=== PATIENT | male | born 1985 | race Caucasian/White ===

== ENCOUNTER 2017-12-29 20:19 | Emergency (ER) | payer SELFPAY ==
[2017-12-29] MEDS ORDERED: ASPIRIN 81 MG CHEWABLE TABLET ONE (22:54)
[2017-12-29] MEDS ORDERED: cloNIDine HCl 0.1 MG TAB ONE (22:54)
[2017-12-29 23:13] LABS: Absolute Lymphocytes (CBC) 1.8 K/uL (0.7-4.9); Absolute Monocytes 0.5 K/uL (0.1-1.3); Absolute Neutrophil 6.6 K/uL (1.8-8.0); Basophils % 0.4 % (0-1.3); Eosinophils % 1.3 % (0-4.4); Hematocrit 45.6 % (39.6-49.0); Lymphocytes % 20.2 % (15.3-44.8); MCH 30.7 pg (27.0-35.0); MCV 89.2 fL (80-100); MPV 9.3 fL (7.6-11.3); Monocytes % 5.9 % (3.3-12.3); RBC Red Blood Cell Count 5.11 M/uL (4.33-5.43)
[2017-12-29 23:17] LABS: Protime INR 1.01
[2017-12-29 23:29] LABS: Urine Blood NEGATIVE (NEG); Urine Glucose NEGATIVE (NEG); Urine Protein NEGATIVE (NEG)
[2017-12-29 23:32] LABS: ALT/SGPT 22 U/L (12-78); AST/SGOT 15 U/L (15-37); Albumin 3.6 g/dL (3.4-5.0); Alkaline Phosphatase 71 U/L (45-117); BUN Blood Urea Nitrogen 10 mg/dL (7-18); Bicarbonate 28 mmol/L (21-32); Bilirubin Direct 0.1 mg/dL (0-0.2); Bilirubin Total 0.5 mg/dL (0.2-1.0); CKMB Creatine Kinase MB < 1.0 ng/mL (0.3-3.6); Creatine Phosphokinase 102 U/L (39-308); Glucose Level 87 mg/dL (74-106); Magnesium 2.1 mg/dL (1.8-2.4); NT PRO-BNP 81 pg/mL (<125); Potassium 4.2 mmol/L (3.5-5.1); Protein, Total 7.6 g/dL (6.4-8.2); Sodium Level 138 mmol/L (136-145)
--- NOTE | 2017-12-30 00:47 | ER ---
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 Transition of care: patient was not received from another setting of care. Onset of symptoms was December 29, 2017. Risk Assessment: Do you want to hurt yourself or someone else? Patient reports no desire to harm self or others. Initial Sepsis Screen: Does the patient meet any 2 criteria? No. Patient's initial sepsis screen is negative. Does the patient have a suspected source of infection? No. Patient's initial sepsis screen is negative. Care prior to arrival: None. 20:26 Method Of Arrival: Ambulatory aj 20:26 Acuity: YUVAL 3 aj Triage Assessment: 20:29 General: Appears in no apparent distress. comfortable, Behavior is calm, cooperative, aj appropriate for age. Pain: Denies pain. Neuro: Level of Consciousness is awake, alert, obeys commands, Oriented to person, place, time, situation, Appropriate for age. Cardiovascular: Reports chest pain, nausea, Capillary refill < 3 seconds in bilateral fingers Patient's skin is warm and dry. Respiratory: Airway is patent Respiratory effort is even, unlabored, Respiratory pattern is regular, symmetrical. Derm: Skin is intact, is healthy with good turgor, Skin is pink, warm \\T\\ dry. normal. Historical: - Allergies: 20:29 PENICILLINS; aj - Home Meds: 20:29 None [Active]; aj - PMHx: 20:29 Hypertension; aj - PSHx: 20:29 Hernia repair; aj - Immunization history:: Adult Immunizations up to date. - Social history:: Smoking status: Patient/guardian denies using tobacco. - Ebola Screening: : Patient negative for fever greater than or equal to 101.5 degrees Fahrenheit, and additional compatible Ebola Virus Disease symptoms Patient denies exposure to infectious person Patient denies travel to an Ebola-affected area in the 21 days before illness onset No symptoms or risks identified at this time. Screenin:30 Abuse screen: Denies threats or abuse. Denies injuries from another. Nutritional aa1 screening: No deficits noted. Tuberculosis screening: No symptoms or risk factors identified. Fall Risk None identified. Assessment: 21:30 General: Appears in no apparent distress. comfortable, Behavior is calm, cooperative, aa1 appropriate for age. Pain: Denies pain. Neuro: Level of Consciousness is awake, alert, obeys commands, Oriented to person, place, time, situation, Moves all extremities. Full function Gait is steady, Speech is normal. Cardiovascular: Reports episode yesterday where he felt a "pumping" sensation in his chest Denies chest pain, diaphoresis, palpitations, Heart tones S1 S2 present Capillary refill < 3 seconds Clubbing of nail beds is absent JVD is absent Patient's skin is warm and dry. Rhythm is regular. Respiratory: Airway is patent Respiratory effort is even, unlabored, Respiratory pattern is regular, symmetrical. GI: No signs and/or symptoms were reported involving the gastrointestinal system. : No signs and/or symptoms were reported regarding the genitourinary system. EENT: No signs and/or symptoms were reported regarding the EENT system. Derm: Skin is intact, is healthy with good turgor, Skin is pink, warm \\T\\ dry. Musculoskeletal: Circulation, motion, and sensation intact. Capillary refill < 3 seconds. 23:50 Reassessment: Patient appears in no apparent distress at this time. Patient and/or aa1 family updated on plan of care and expected duration. Pain level reassessed. Patient is alert, oriented x 3, equal unlabored respirations, skin warm/dry/pink. Awaiting lab results. 12/30 00:39 Reassessment: Patient appears in no apparent distress at this time. Patient is alert, aa1 oriented x 3, equal unlabored respirations, skin warm/dry/pink. Pt reports he does not wish to stay for repeat cardiac enzymes which are to be drawn at 0130 and would like to sign out AMA. Pt \\T\\ spouse verbalize understanding of signing out AMA Patient denies pain at this time. Patient states feeling better. Vital Signs: 12/29 20:29 BP 167 / 112; Pulse 77; Resp 18; Temp 97.9; Pulse Ox 98% on R/A; Weight 145.15 kg; aj Height 5 ft. 8 in. (172.72 cm); 22:32 BP 149 / 104; Pulse 79; Resp 14; Pulse Ox 96% ; kk5 23:30 BP 138 / 80; Pulse 76; Resp 16; Pulse Ox 99% on R/A; Pain 0/10; aa1 12/30 00:30 BP 145 / 88; Pulse 71; Resp 16; Pulse Ox 99% on R/A; Pain 0/10; aa1 12/29 20:29 Body Mass Index 48.66 (145.15 kg, 172.72 cm) aj ED Course: 12/29 20:21 Patient arrived in ED. al2 20:21 Gaudencio Avina MD is Private Physician. al2 20:28 Triage completed. aj 20:29 Arm band placed on left wrist. Patient placed in waiting room. aj 20:50 EKG done, by ED staff. jp3 21:30 Patient has correct armband on for positive identification. Bed in low position. Call aa1 light in reach. thread trimmer on. Pulse ox on. NIBP on. 21:30 Patient maintains SpO2 saturation greater than 95% on room air. aa1 21:56 Elayne Dye FNP-C is PHCP. snw 21:56 Jorge Ness MD is Attending Physician. snw 22:23 Mirta Dumont RN is Primary Nurse. aa1 22:42 X-ray completed. Portable x-ray completed in exam room. Patient tolerated procedure ag1 well. 22:42 XRAY Chest (1 view) In Process Unspecified. EDMS 22:50 Inserted saline lock: 20 gauge in left antecubital area, using aseptic technique. Blood aa1 collected. 23:16 Urine collected: clean catch specimen, mateo colored. aa1 12/30 00:41 No provider procedures requiring assistance completed. IV discontinued, intact, aa1 bleeding controlled, No redness/swelling at site. Pressure dressing applied. 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 Demonstrated understanding of instructions. 00:46 Patient left the ED. aa1 Signatures: Dispatcher [employer] EDMS Mirta Dumont RN RN baldev1 Roseanne Granda RN RN Elayne Cheng, AUDIT SENIOR ASSOCIATE-C AUDIT SENIOR ASSOCIATE-Csnw Elvia Kay ag1 Rosemarie Diaz al2 Dallas Huitron jp3 Lora Colmenares kk5 Corrections: (The following items were deleted from the chart) 12/29 20:31 20:29 Arm band placed on left wrist. Patient placed in an exam room, on a stretcher, kassandra cannon
--- NOTE | 2017-12-30 00:47 | EDPHYS ---
Physician Documentation [facility] Name: Cheko Moran Age: 32 yrs Sex: Male : 1985 Arrival Date: 12/29/2017 Time: 20:21 Bed 13 Private MD: Gaudencio Avina T ED Physician Jorge Ness HPI: 12/29 22:38 This 32 yrs old Male presents to ER via Ambulatory with complaints of Chest snw Pain. 22:38 The patient or guardian reports chest pain that is located primarily in the anterior snw chest wall, left. The pain does not radiate. Associated signs and symptoms: Pertinent positives: nausea, palpitations, shortness of breath, tingling in left arm. The chest pain is described as squeezing. Duration: The patient or guardian reports a single episode, that is now resolved. Severity of pain: At its worst the pain was moderate severe. The patient has experienced a previous episode, yesterday. The patient has not recently seen a physician, the patient's primary care provider is Dr. Avina. Placed on HTN med, pt states everything got worse. Changed med, "same thing". Aunt 2 weeks ago of maker at 47. Pt states + early heart disease and family hx of obesity. Historical: - Allergies: 20:29 PENICILLINS; aj - Home Meds: 20:29 None [Active]; aj - PMHx: 20:29 Hypertension; aj - PSHx: 20:29 Hernia repair; aj - Immunization history:: Adult Immunizations up to date. - Social history:: Smoking status: Patient/guardian denies using tobacco. - Ebola Screening: : Patient negative for fever greater than or equal to 101.5 degrees Fahrenheit, and additional compatible Ebola Virus Disease symptoms Patient denies exposure to infectious person Patient denies travel to an Ebola-affected area in the 21 days before illness onset No symptoms or risks identified at this time. ROS: 22:36 Constitutional: Negative for fever, chills, and weight loss, Eyes: Negative for injury, snw pain, redness, and discharge, ENT: Negative for injury, pain, and discharge, Neck: Negative for injury, pain, and swelling. 22:36 Back: Negative for injury and pain, : Negative for injury, bleeding, discharge, and swelling, MS/Extremity: Negative for injury and deformity. 22:36 Neuro: Negative for headache, weakness, numbness, tingling, and seizure, Psych: Negative for depression, anxiety, suicide ideation, homicidal ideation, and hallucinations. 22:36 Cardiovascular: Positive for chest pain, orthopnea, palpitations. 22:36 Respiratory: Positive for shortness of breath. 22:36 Abdomen/GI: Positive for nausea. 22:36 Skin: Positive for diaphoresis. Exam: 22:36 Head/Face: Normocephalic, atraumatic. Eyes: Pupils equal round and reactive to light, snw extra-ocular motions intact. Lids and lashes normal. Conjunctiva and sclera are non-icteric and not injected. Cornea within normal limits. Periorbital areas with no swelling, redness, or edema. ENT: Nares patent. No nasal discharge, no septal abnormalities noted. Tympanic membranes are normal and external auditory canals are clear. Oropharynx with no redness, swelling, or masses, exudates, or evidence of obstruction, uvula midline. Mucous membranes moist. Neck: Trachea midline, no thyromegaly or masses palpated, and no cervical lymphadenopathy. Supple, full range of motion without nuchal rigidity, or vertebral point tenderness. No Meningismus. Chest/axilla: Normal chest wall appearance and motion. Nontender with no deformity. No lesions are appreciated. Cardiovascular: Regular rate and rhythm with a normal S1 and S2. No gallops, murmurs, or rubs. Normal PMI, no JVD. No pulse deficits. Respiratory: Lungs have equal breath sounds bilaterally, clear to auscultation and percussion. No rales, rhonchi or wheezes noted. No increased work of breathing, no retractions or nasal flaring. Abdomen/GI: Soft, non-tender, with normal bowel sounds. No distension or tympany. No guarding or rebound. No evidence of tenderness throughout. Back: No spinal tenderness. No costovertebral tenderness. Full range of motion. Skin: Warm, dry with normal turgor. Normal color with no rashes, no lesions, and no evidence of cellulitis. MS/ Extremity: Pulses equal, no cyanosis. Neurovascular intact. Full, normal range of motion. Neuro: Awake and alert, GCS 15, oriented to person, place, time, and situation. Cranial nerves II-XII grossly intact. Motor strength 5/5 in all extremities. Sensory grossly intact. Cerebellar exam normal. Normal gait. Psych: Awake, alert, with orientation to person, place and time. Behavior, mood, and affect are within normal limits. 22:36 Constitutional: The patient appears alert, awake, anxious, obese. Vital Signs: 20:29 BP 167 / 112; Pulse 77; Resp 18; Temp 97.9; Pulse Ox 98% on R/A; Weight 145.15 kg; aj Height 5 ft. 8 in. (172.72 cm); 22:32 BP 149 / 104; Pulse 79; Resp 14; Pulse Ox 96% ; kk5 23:30 BP 138 / 80; Pulse 76; Resp 16; Pulse Ox 99% on R/A; Pain 0/10; aa1 12/30 00:30 BP 145 / 88; Pulse 71; Resp 16; Pulse Ox 99% on R/A; Pain 0/10; aa1 12/29 20:29 Body Mass Index 48.66 (145.15 kg, 172.72 cm) aj MDM: 12/29 22:00 Patient medically screened. [facility] 12/30 01:10 LINDY Risk Score: 1 - Recent [<24hrs] Severe Angina. Data reviewed: vital signs, nurses snw notes, lab test result(s), EKG, radiologic studies. Awaiting: rapid rule time to repeat trop and EKG. Refusal of service: The patient/guardian displays adequate decision making capability and despite a detailed discussion of alternatives, benefits, risks, and consequences refuses: all lab tests, awaiting discharge, rapid rule chest pain protocol. Special discussion: Based on the history and exam findings, there is no indication for further emergent testing or inpatient evaluation. I discussed with the patient/guardian the need to see the operations support specialist for further evaluation of the symptoms. I discussed with the patient/guardian the need to see the primary care provider for further evaluation of the symptoms. 12/29 22:36 Order name: Basic Metabolic Panel; Complete Time: 23:34 snw 12/29 22:36 Order name: CBC with Diff; Complete Time: 23:16 snw 12/29 22:36 Order name: Ckmb; Complete Time: 23:34 snw 12/29 22:36 Order name: CPK; Complete Time: 23:34 snw 12/29 22:36 Order name: LFT's; Complete Time: 23:34 snw 12/29 22:36 Order name: Magnesium; Complete Time: 23:34 snw 12/29 22:36 Order name: NT PRO-BNP; Complete Time: 23:34 snw 12/29 22:36 Order name: PT-INR; Complete Time: 23:18 snw 12/29 22:36 Order name: Ptt, Activated; Complete Time: 23:18 snw 12/29 22:36 Order name: Troponin (emerg Dept Use Only); Complete Time: 23:29 snw 12/29 22:36 Order name: XRAY Chest (1 view) snw 12/29 23:18 Order name: Urine Dipstick--Ancillary (enter results); Complete Time: 23:34 ms 12/29 22:20 Order name: EKG; Complete Time: 22:22 snw 12/29 22:20 Order name: EKG - Nurse/Tech; Complete Time: 22:24 snw 12/29 22:36 Order name: Cardiac monitoring; Complete Time: 22:46 snw 12/29 22:36 Order name: IV Saline Lock; Complete Time: 23:09 snw 12/29 22:36 Order name: Labs collected and sent; Complete Time: 23:09 snw 12/29 22:36 Order name: O2 Per Protocol; Complete Time: 22:46 snw 12/29 22:36 Order name: O2 Sat Monitoring; Complete Time: 22:46 snw 12/29 22:36 Order name: Urine Dipstick-Ancillary (obtain specimen); Complete Time: 23:50 snw Administered Medications: 12/29 23:00 Drug: cloNIDine 0.1 mg Route: PO; aa1 23:50 Follow up: Response: No adverse reaction; Blood pressure is lowered aa1 23:15 Not Given (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 Disposition: 12/30/17 00:46 Patient has left against medical advice. - Patients states they are going to Home. - Condition is Stable. Signatures: Dispatcher [facility] Mirta Montes De Oca RN RN aa1 Granda, JI Cronin RN, Corey, MD MD cha Therrien, Shelly, LAMP SHADE MAKER-C LAMP SHADE MAKER-Csnw
[2017-12-30 01:24] VITALS: TEMP 97.9
[2017-12-30 01:26] VITALS: O2SAT 99
[2017-12-30 01:28] VITALS: BP 145/88
--- NOTE | 2017-12-30 07:10 | RAD REPORT ---
EXAM DESCRIPTION: RAD - Chest Single View - 12/29/2017 10:45 pm CLINICAL HISTORY: Chest pain COMPARISON: February 2017 TECHNIQUE: AP portable chest image was obtained 2241 hours . FINDINGS: Lungs are clear. Heart and vasculature are normal. No measurable pleural effusion and no p neumothorax. No gross bony abnormality seen. No acute aortic findings suspected. IMPRESSION: No acute cardiopulmonary process. No significant interval change.
--- NOTE | 2017-12-30 09:03 | EKG ---
Test Date: 2017-12-29 Test Time: 20:42:57 Accounting Clerks Supervisor: GURPREET MEASUREMENT RESULTS: Intervals: Rate: 73 ND: 144 QRSD: 78 QT: 344 QTc: 378 [place]: P: 51 ND: 144 QRS: 5 T: 17 INTERPRETIVE STATEMENTS: Sinus rhythm with marked sinus arrhythmia Minimal voltage criteria for LVH, may be normal variant Borderline ECG Compared to ECG 02/28/2017 01:03:40 Left ventricular hypertrophy now present Electronically Signed On 12-30-17 09:02:49 CDT by Gerard Rivera
== END 2017-12-30 00:46 | disposition left against medical advice (07) ==
LOC: ER 20:19
DX: R07.9 Chest pain, unspecified (principal); I10 Essential (primary) hypertension; Z88.0 Allergy status to penicillin; Z82.49 Family history of ischemic heart disease and other diseases of the circulatory system
CPT/HCPCS: 36415; 71045; 80048; 80076; 81003; 82550; 82553; 83735; 83880; 84484; 85025; 85610; 85730; 93005; 99285

== ENCOUNTER 2018-07-01 05:49 | Emergency (ER) | payer SELFPAY ==
[2018-07-01] MEDS ORDERED: BUPIVACAINE 0.5% PF 10 ML VIAL ONE (06:37)
[2018-07-01] MEDS ORDERED: CLINDAMYCIN 900MG/D5W 900 MG/50 ML IVPB IV ONE (06:37)
[2018-07-01] MEDS ORDERED: LIDOCAINE 1% 20 ML MDV ONE (06:39)
--- NOTE | 2018-07-01 07:22 | EDPHYS ---
Physician Documentation [facility] Name: Cheko Moran Age: 32 yrs Sex: Male : 1985 Arrival Date: 07/01/2018 Time: 05:50 Bed 17 Private MD: Gaudencio Avina T ED Physician Alton Fierro HPI: 07/01 06:20 This 32 yrs old Male presents to ER via Ambulatory with complaints of Jaw cp Pain, Fever. 06:20 The patient presents with broken tooth/teeth, pain, swelling. The problem is located in cp the right lower jaw. Onset: The symptoms/episode began/occurred 2 day(s) ago. 06:20 Duration: The symptoms are continuous, and are steadily getting worse. Associated signs cp and symptoms: Pertinent positives: fever, pain, swelling, mandibular, Pertinent negatives: dysphagia, inability to eat. Severity of symptoms: in the emergency department the symptoms are unchanged, despite home interventions. Historical: - Allergies: 06:03 PENICILLINS; rr5 - Home Meds: 06:03 Lisinopril Oral [Active]; rr5 - PMHx: 06:03 Hypertension; rr5 - PSHx: 06:03 UMBILICAL HERNIA; rr5 - Immunization history:: Adult Immunizations up to date. - Social history:: Smoking status: Patient uses tobacco products, 5 STICKS, Patient/guardian denies using alcohol, street drugs. - Ebola Screening: : Patient negative for fever greater than or equal to 101.5 degrees Fahrenheit, and additional compatible Ebola Virus Disease symptoms Patient denies exposure to infectious person Patient denies travel to an Ebola-affected area in the 21 days before illness onset. ROS: 06:25 Eyes: Negative for injury, pain, redness, and discharge. cp 06:25 Constitutional: Negative for body aches, chills, fever, poor PO intake. 06:25 ENT: Positive for dental pain, right lower jaw swelling, Negative for drainage from ear(s), ear pain, sore throat, difficulty swallowing, difficulty handling secretions. 06:25 Cardiovascular: Negative for chest pain. 06:25 Respiratory: Negative for cough, shortness of breath, wheezing. 06:25 Abdomen/GI: Negative for abdominal pain, vomiting, diarrhea, constipation. 06:25 Neuro: Negative for altered mental status, headache, weakness. 06:25 All other systems are negative. Exam: 06:30 Constitutional: The patient appears in no acute distress, alert, awake, non-toxic, well cp developed, well nourished. 06:30 Head/face: Noted is swelling, that is mild, of the right jaw, tenderness, that is cp moderate. 06:30 Eyes: Periorbital structures: appear normal, Pupils: equal, round, and reactive to light and accomodation, Extraocular movements: intact throughout, Conjunctiva: normal, no exudate, no injection, Lids and lashes: appear normal, bilaterally. 06:30 ENT: External ear(s): are unremarkable, Ear canal(s): are normal, clear, TM's: bulging, is not appreciated, bilaterally, dullness, bilaterally, erythema, is not appreciated, bilaterally, Nose: is normal, Mouth: Lips: moist, Oral mucosa: pink and intact, moist, Gums: swollen, on the outer gumline of right lower jaw, Tongue: is normal, Posterior pharynx: Airway: no evidence of obstruction, patent, Tonsils: are normal in appearance, Uvula: midline, swelling, is not appreciated, erythema, is not appreciated, exudate, is not appreciated, Dental exam: fractured teeth are noted, specifically the lower right first molar (#30), pain, that is moderate, specifically in the lower right first molar (#30), Voice: is normal. 06:30 Neck: ROM/movement: is normal, is supple, without pain, no range of motions limitations, no meningismus, no nuchal rigidity. 06:30 Chest/axilla: Inspection: normal, Palpation: is normal, no crepitus, no tenderness. 06:30 Cardiovascular: Rate: normal, Rhythm: regular. 06:30 Respiratory: the patient does not display signs of respiratory distress, Respirations: normal, no use of accessory muscles, no retractions, no splinting, no tachypnea, labored breathing, is not present, Breath sounds: are clear throughout, no decreased breath sounds, no stridor, no wheezing. 06:30 Abdomen/GI: Exam negative for discomfort, distension, guarding, Inspection: abdomen appears normal. 06:30 Skin: cellulitis, is not appreciated, no rash present. Vital Signs: 06:02 BP 136 / 67; Pulse 93; Resp 18; Temp 98.7; Pulse Ox 98% ; Weight 145.15 kg; Height 5 rr5 ft. 8 in. (172.72 cm); Pain 7/10; 07:00 BP 141 / 94; Pulse 78; Resp 18; Pulse Ox 99% on R/A; em 06:02 Body Mass Index 48.66 (145.15 kg, 172.72 cm) rr5 MDM: 06:13 Patient medically screened. cp 07:20 Data reviewed: vital signs, nurses notes, and as a result, I will discharge patient. cp 07:20 Counseling: I had a detailed discussion with the patient and/or guardian regarding: the cp historical points, exam findings, and any diagnostic results supporting the discharge/admit diagnosis, the need for outpatient follow up, for definitive care, a dentist, to return to the emergency department if symptoms worsen or persist or if there are any questions or concerns that arise at home. Response to treatment: the patient's symptoms have markedly improved after treatment, and as a result, I will discharge patient. 07/01 06:24 Order name: IV; Complete Time: 06:48 cp Administered Medications: 06:35 Drug: Lidocaine-Epinephrine -1%: (1:100,000) 5 ml {Note: administered by ER Provider..} jb4 Volume: 20 ml; Route: Infiltration; 07:30 Follow up: Response: No adverse reaction; Pain is decreased em 06:36 Drug: Marcaine (0.5 %) 5 ml {Note: administered by ER provider..} Volume: 10 ml; Route: jb4 Infiltration; 07:30 Follow up: Response: No adverse reaction; Pain is decreased em 06:48 Drug: Clindamycin 900 mg Route: IVPB; Infused Over: 30 mins; Site: right forearm; jb4 07:30 Follow up: Response: No adverse reaction; IV Status: Completed infusion; IV Intake: em 100ml Disposition: 07:25 Chart complete. cp Disposition: 07/01/18 07:21 Discharged to Home. Impression: Jaw pain - Right lower. - Condition is Stable. - Discharge Instructions: Dental Pain. - Prescriptions for Clindamycin HCl 300 mg Oral Capsule - take 1 capsule by ORAL route every 6 hours for 10 days; 40 capsule. Tramadol 50 mg Oral Tablet - take 1 tablet by ORAL route every 8 hours as needed. no driving while taking medication; 15 tablet. - Work release form, Medication Reconciliation Form, Thank You Letter, Antibiotic Education, Prescription Opioid Use form. - Follow up: Niko Keating DDS; When: 2 - 3 days; Reason: Recheck today's complaints. - Problem is new. - Symptoms have improved. Signatures: Corby Zuniga, TARGETEER TARGETEER em Jorge Moyer PA PA cp Sreedhar Whitehead, RN RN jb4 Ashok Rosado RN RN rr5 Corrections: (The following items were deleted from the chart) 06:27 06:24 This 32 yrs old Male presents to ER via Ambulatory with complaints of cp Jaw Pain, Fever. cp 07:46 07:21 07/01/2018 07:21 Discharged to Home. Impression: Jaw pain - Right lower. em Condition is Stable. Forms are Medication Reconciliation Form, Thank You Letter, Antibiotic Education, Prescription Opioid Use. Follow up: Niko Keating; When: 2 - 3 days; Reason: Recheck today's complaints. Problem is new. Symptoms have improved. cp
--- NOTE | 2018-07-01 07:22 | ER ---
Nurse's Notes [facility] Name: Cheko Moran Age: 32 yrs Sex: Male : 1985 Arrival Date: 07/01/2018 Time: 05:50 Bed 17 Private MD: Gaudencio Avina T Diagnosis: Jaw pain-Right lower Presentation: 07/01 05:59 Presenting complaint: Patient states: pain right jaw broken tooth lower molar pain rr5 score 7/10, associated with right jaw swelling. Transition of care: patient was not received from another setting of care. Onset of symptoms was June 29, 2018. Risk Assessment: Do you want to hurt yourself or someone else? Patient reports no desire to harm self or others. Initial Sepsis Screen: Does the patient meet any 2 criteria? No. Patient's initial sepsis screen is negative. Does the patient have a suspected source of infection? No. Patient's initial sepsis screen is negative. Care prior to arrival: None. 05:59 Method Of Arrival: Ambulatory rr5 05:59 Acuity: YUVAL 4 rr5 Historical: - Allergies: 06:03 PENICILLINS; rr5 - Home Meds: 06:03 Lisinopril Oral [Active]; rr5 - PMHx: 06:03 Hypertension; rr5 - PSHx: 06:03 UMBILICAL HERNIA; rr5 - Immunization history:: Adult Immunizations up to date. - Social history:: Smoking status: Patient uses tobacco products, 5 STICKS, Patient/guardian denies using alcohol, street drugs. - Ebola Screening: : Patient negative for fever greater than or equal to 101.5 degrees Fahrenheit, and additional compatible Ebola Virus Disease symptoms Patient denies exposure to infectious person Patient denies travel to an Ebola-affected area in the 21 days before illness onset. Screenin:01 Abuse screen: Denies threats or abuse. Nutritional screening: No deficits noted. jb4 Tuberculosis screening: No symptoms or risk factors identified. Fall Risk None identified. Assessment: 06:01 General: Appears in no apparent distress. comfortable, Behavior is calm, cooperative, jb4 appropriate for age. Pain: Complains of pain in right jaw Pain does not radiate. Pain currently is 7 out of 10 on a pain scale. Quality of pain is described as throbbing. Neuro: Level of Consciousness is awake, alert, obeys commands, Oriented to person, place, time, situation. Cardiovascular: Patient's skin is warm and dry. Respiratory: Airway is patent Respiratory effort is even, unlabored, Respiratory pattern is regular, symmetrical. GI: No signs and/or symptoms were reported involving the gastrointestinal system. : No signs and/or symptoms were reported regarding the genitourinary system. EENT: Oral mucosa is moist. Dental caries noted in lower right second bicuspid (#29) and lower right first molar (#30) swelling noted to the right cheet. Derm: Skin is intact, Skin is pink, warm \T\ dry. Musculoskeletal: Circulation, motion, and sensation intact. 07:00 Reassessment: Patient appears in no apparent distress at this time. Patient and/or em family updated on plan of care and expected duration. Pain level reassessed. Patient is alert, oriented x 3, equal unlabored respirations, skin warm/dry/pink. pending completion of IV ABX Patient states feeling better. Vital Signs: 06:02 BP 136 / 67; Pulse 93; Resp 18; Temp 98.7; Pulse Ox 98% ; Weight 145.15 kg; Height 5 rr5 ft. 8 in. (172.72 cm); Pain 7/10; 07:00 BP 141 / 94; Pulse 78; Resp 18; Pulse Ox 99% on R/A; em 06:02 Body Mass Index 48.66 (145.15 kg, 172.72 cm) rr5 ED Course: 05:50 Patient arrived in ED. am2 05:51 Gaudencio Avina MD is Private Physician. am2 05:52 Sreedhar Whitehead, RN is Primary Nurse. jb4 06:01 Patient has correct armband on for positive identification. Placed in gown. Bed in low jb4 position. Call light in reach. Side rails up X 1. Pulse ox on. NIBP on. 06:02 Triage completed. rr5 06:11 Jorge Moyer PA is PHCP. cp 06:11 Alton Fierro MD is Attending Physician. cp 06:40 Inserted saline lock: 20 gauge in right forearm, using aseptic technique. jb4 07:20 Niko Keating DDS is Referral Physician. cp 07:44 Arm band placed on. em 07:44 No provider procedures requiring assistance completed. IV discontinued, intact, em bleeding controlled, No redness/swelling at site. Pressure dressing applied. Administered Medications: 06:35 Drug: Lidocaine-Epinephrine -1%: (1:100,000) 5 ml {Note: administered by ER Provider..} jb4 Volume: 20 ml; Route: Infiltration; 07:30 Follow up: Response: No adverse reaction; Pain is decreased em 06:36 Drug: Marcaine (0.5 %) 5 ml {Note: administered by ER provider..} Volume: 10 ml; Route: jb4 Infiltration; 07:30 Follow up: Response: No adverse reaction; Pain is decreased em 06:48 Drug: Clindamycin 900 mg Route: IVPB; Infused Over: 30 mins; Site: right forearm; jb4 07:30 Follow up: Response: No adverse reaction; IV Status: Completed infusion; IV Intake: em 100ml Intake: 07:30 IV: 100ml; Total: 100ml. em Outcome: 07:21 Discharge ordered by MD. cp 07:46 Discharged to home ambulatory. em 07:46 Condition: good 07:46 Discharge instructions given to patient, Instructed on discharge instructions, follow up and referral plans. medication usage, Demonstrated understanding of instructions, follow-up care, medications, Prescriptions given X 2. 07:46 Patient left the ED. em Signatures: Corby Zuniga, INDUSTRIAL ACCOUNTANT INDUSTRIAL ACCOUNTANT em Jorge Moyer PA PA cp Bryson, James, RN RN jb4 Roseanne Brody am2 Ashok Rosado, RN RN rr5
[2018-07-01 07:56] VITALS: TEMP 98.7
[2018-07-01 07:57] VITALS: BP 141/94; O2SAT 99
== END 2018-07-01 07:46 | disposition home or self-care (01) ==
LOC: ER 05:49
DX: R68.84 Jaw pain (principal); I10 Essential (primary) hypertension; Z72.0 Tobacco use; Z88.0 Allergy status to penicillin
CPT/HCPCS: 96365; 99284

== ENCOUNTER 2021-03-31 14:30 | Emergency (ER) | payer SELFPAY ==
[2021-03-31] MEDS ORDERED: LORazepam 2 MG/ML VIAL ONE ×2 (15:18→16:17)
[2021-03-31] MEDS ORDERED: NA CHLORIDE 0.9% 1,000 ML ONE (15:18)
[2021-03-31] MEDS ORDERED: NA CHLORIDE 0.9% 1,000 ML with FOLIC ACID 1 MG, THIAMINE HCL 100 MG, MULTIVITAMINS INJ ... IV SCH ×4 (15:30)
[2021-03-31 15:51] LABS: Absolute Lymphocytes (CBC) 1.7 K/uL (0.7-4.9); Basophils % 0.5 % (0-1.3); Hematocrit 46.7 % (39.6-49.0); MPV 7.9 fL (7.6-11.3); RBC Red Blood Cell Count 5.19 M/uL (4.33-5.43)
[2021-03-31 15:52] LABS: ALT/SGPT 32 U/L (12-78); AST/SGOT 29 U/L (15-37); Albumin 4.1 g/dL (3.4-5.0); Alkaline Phosphatase 86 U/L (45-117); BUN Blood Urea Nitrogen 6 mg/dL (7-18); Bicarbonate 23 mmol/L (21-32); Bilirubin Direct 0.2 mg/dL (0-0.2); Bilirubin Total 0.5 mg/dL (0.2-1.0); Glucose Level 107 mg/dL (74-106); Magnesium 1.7 mg/dL (1.8-2.4); Potassium 3.9 mmol/L (3.5-5.1); Protein, Total 8.2 g/dL (6.4-8.2); Sodium Level 140 mmol/L (136-145); Troponin (Emerg Dept Use Only) < 0.02 ng/mL (0.0-0.045)
[2021-03-31] MEDS ORDERED: MAGNESIUM SULFATE 1 gm IVPB 1 GM/100 ML BAG IV ONE (16:18)
[2021-03-31] MEDS ORDERED: cloNIDine HCL 0.1 MG TAB ONE (17:20)
--- NOTE | 2021-03-31 18:10 | ER ---
Nurse's Notes [facility] Name: Cheko Moran Age: 35 yrs Sex: Male : 1985 Arrival Date: 03/31/2021 Time: 14:32 Bed 8 Private MD: Diagnosis: Chest pain, unspecified;Alcohol abuse;Essential (primary) hypertension Presentation: 03/31 14:36 Chief complaint: Patient states: tingling in face and hands x1 hour; last drink at 3am [facility] (been drinking since without eating). Coronavirus screen: Vaccine status: Patient reports being unvaccinated. Client denies travel out of the [place] in the last 14 days. Ebola Screen: Patient negative for fever greater than or equal to 101.5 degrees Fahrenheit, and additional compatible Ebola Virus Disease symptoms Patient denies exposure to infectious person. Patient denies travel to an Ebola-affected area in the 21 days before illness onset. No symptoms or risks identified at this time. Initial Sepsis Screen: Does the patient meet any 2 criteria? HR > 90 bpm. Does the patient have a suspected source of infection? No. Patient's initial sepsis screen is negative. Risk Assessment: Do you want to hurt yourself or someone else? Patient reports no desire to harm self or others. 14:36 Method Of Arrival: Wheelchair [facility] 14:36 Acuity: YUVAL 3 5 16:46 Onset of symptoms was March 31, 2021 at 13:30. ll3 Historical: - Allergies: 15:51 PENICILLINS; 5 - Home Meds: 15:51 lisinopril Oral [Active]; [facility] - PMHx: 15:51 Hypertension; Alcohol dependence; 5 - Immunization history:: Adult Immunizations up to date, Client reports having NOT received the Covid vaccine. - Social history:: Smoking status: unknown Patient uses alcohol, on a daily basis. Patient/guardian denies using street drugs, IV drugs, over the counter diet medications. - Family history:: not pertinent. - Hospitalizations: : No recent hospitalization is reported. Screenin:53 Abuse screen: Denies threats or abuse. Denies injuries from another. Nutritional [facility] screening: No deficits noted. Tuberculosis screening: No symptoms or risk factors identified. Fall Risk Secondary diagnosis (15 points) alcohol withdrawals, unsteady gait. Assessment: 15:35 General: Appears distressed, comfortable, obese, Behavior is cooperative, anxious. ll3 Pain: Complains of pain in anterior aspect of left upper chest Pain radiates to left subscapular area Pain currently is 4 out of 10 on a pain scale. Quality of pain is described as pressure, Pain began 1 hour ago. Is continuous. Neuro: Level of Consciousness is awake, alert, obeys commands, Oriented to person, place, time, situation, Speech is normal, Facial symmetry appears normal. Cardiovascular: Reports chest pain, Patient's skin is warm and dry. Respiratory: Airway is patent Trachea midline Respiratory effort is even, unlabored, Respiratory pattern is regular, symmetrical. GI: Abdomen is flat, round. : No deficits noted. Derm: Skin is intact, is healthy with good turgor, Skin is pink, warm \T\ dry. Musculoskeletal: No deficits noted. Range of motion: intact in all extremities. 16:41 Reassessment: Patient appears in no apparent distress at this time. Patient and/or ll3 family updated on plan of care and expected duration. Pain level reassessed. Patient is alert, oriented x 3, equal unlabored respirations, skin warm/dry/pink. Pt states he feels better, his anxiety has decreased. Patient states feeling better. Patient states symptoms have improved. 17:41 Reassessment: Patient appears in no apparent distress at this time. No changes from ll3 previously documented assessment. 18:45 Reassessment: Patient appears in no apparent distress at this time. No changes from ll3 previously documented assessment. Patient and/or family updated on plan of care and expected duration. Pain level reassessed. Patient is alert, oriented x 3, equal unlabored respirations, skin warm/dry/pink. Vital Signs: 14:36 BP 155 / 108; Pulse 120; Resp 18; Temp 97.1; Pulse Ox 100% ; Weight 145.15 kg; Height 5 jh5 ft. 9 in. (175.26 cm); 15:05 BP 160 / 120; Pulse 108; Resp 20; Pulse Ox 100% ; ll3 15:30 BP 153 / 113; Pulse 111; Resp 25; Pulse Ox 100% ; ll3 16:30 BP 168 / 98; Pulse 105; Resp 20; Pulse Ox 96% ; ll3 17:29 BP 169 / 102; Pulse 112; Resp 26; Pulse Ox 99% ; ll3 18:45 BP 145 / 94; Pulse 107; Resp 28; Pulse Ox 100% ; ll3 14:36 Body Mass Index 47.26 (145.15 kg, 175.26 cm) [facility] ED Course: 14:32 Patient arrived in ED. as 14:37 Triage completed. [facility] 14:40 Shiva Cordero MD is Attending Physician. rn 14:55 Rian Hanson RN is Primary Nurse. 3 15:00 EKG done, by ED staff, reviewed by Shiva Cordero MD. ll3 15:10 Inserted saline lock: 20 gauge in left hand, using aseptic technique. Patient maintains ll3 SpO2 saturation greater than 95% on room air. 16:41 Patient has correct armband on for positive identification. Bed in low position. Call 3 light in reach. Side rails up X 1. desk monitor on. Pulse ox on. NIBP on. 16:47 Arm band placed on left wrist. ll3 18:56 No provider procedures requiring assistance completed. ll3 19:07 IV discontinued, intact, bleeding controlled, No redness/swelling at site. Pressure 3 dressing applied. Administered Medications: 15:30 Drug: NS 0.9% 1000 ml Route: IV; Rate: 1000 ml; Site: left hand; ll3 16:40 Follow up: Response: No adverse reaction ll3 16:40 Follow up: IV Status: Completed infusion; IV Intake: 1000ml ll3 15:30 Drug: Ativan (LORazepam) 1 mg Route: IVP; Site: left hand; ll3 16:40 Follow up: Response: No adverse reaction ll3 16:39 Drug: Magnesium Sulfate 1 grams Route: IVPB; Infused Over: 1 hrs; Site: left hand; ll3 17:38 Follow up: Response: No adverse reaction; IV Status: Completed infusion ll3 16:39 Drug: Ativan (LORazepam) 1 mg Route: IVP; Site: left hand; ll3 17:14 Follow up: Response: No adverse reaction; Marked relief of symptoms ll3 16:40 Drug: Banana Bag - (NS 0.9% 1000 ml, foLIC Acid 1 mg, Thiamine 100 mg, Multivitamin 1 ll3 amp) Route: IV; Rate: calculated rate; Site: left hand; 18:55 Follow up: Response: No adverse reaction; IV Status: Completed infusion; IV Intake: ll3 1000ml 17:35 Drug: cloNIDine 0.1 mg Route: PO; ll3 18:29 Follow up: Response: No adverse reaction ll3 18:46 Drug: Phenergan (promethazine) 12.5 mg Route: IVP; Site: left hand; ll3 18:54 Follow up: Response: No adverse reaction; Nausea is decreased ll3 Intake: 16:40 IV: 1000ml; Total: 1000ml. ll3 18:55 IV: 1000ml; Total: 2000ml. ll3 Outcome: 18:09 Discharge ordered by . rn 19:06 Discharged to home ambulatory. ll3 19:06 Condition: improved 19:06 Discharge instructions given to patient, Instructed on discharge instructions, follow up and referral plans. medication usage, Demonstrated understanding of instructions, follow-up care, medications, Prescriptions given X 1. 19:07 Patient left the ED. ll3 Signatures: Trini Singh Roman, MD MD rn Rees, Jessica, RN RN jh5 Rian Hanson RN RN ll3
--- NOTE | 2021-03-31 18:10 | EDPHYS ---
Physician Documentation [facility] Name: Cheko Moran Age: 35 yrs Sex: Male : 1985 Arrival Date: 03/31/2021 Time: 14:32 Bed 8 Private MD: ED Physician Shiva Cordero HPI: 03/31 15:08 This 35 yrs old Male presents to ER via Wheelchair with complaints of Chest rn Pain. 15:08 The patient or guardian reports chest pain that is located primarily in the anterior rn chest wall. The pain does not radiate. Associated signs and symptoms: Pertinent positives: palpitations, Pertinent negatives: abdominal pain, shortness of breath, syncope, vomiting. The chest pain is described as a pressure. Duration: The patient or guardian reports multiple episodes, that are intermittent. Modifying factors: The symptoms are alleviated by nothing. the symptoms are aggravated by nothing. Severity of pain: At its worst the pain was mild in the emergency department the pain is unchanged. The patient has not experienced similar symptoms in the past. The patient has not recently seen a physician. Patient reports has been drinking heavily due to argument with girlfriend this last week. Is drinking about 36 drinks a day. Last drink was 3 AM. States is an alcoholic but does not drink daily. Can go 5 to 7 days sometimes without a drink and no signs of withdrawal. Reports today feeling chest pain and palpitations, feels heart racing, feels numbness and tingling to both arms and feels lightheaded. Feels anxious. Friend states patient not eating or drinking and has only been drinking alcohol this last few days. Historical: - Allergies: 15:51 PENICILLINS; [facility] - Home Meds: 15:51 lisinopril Oral [Active]; [facility] - PMHx: 15:51 Hypertension; Alcohol dependence; [facility] - Immunization history:: Adult Immunizations up to date, Client reports having NOT received the Covid vaccine. - Social history:: Smoking status: unknown Patient uses alcohol, on a daily basis. Patient/guardian denies using street drugs, IV drugs, over the counter diet medications. - Family history:: not pertinent. - Hospitalizations: : No recent hospitalization is reported. ROS: 15:08 Constitutional: Negative for fever, chills, and weight loss, Eyes: Negative for injury, rn pain, redness, and discharge, Neck: Negative for injury, pain, and swelling, Cardiovascular: Negative for edema Respiratory: Negative for shortness of breath, cough, wheezing, and pleuritic chest pain, Abdomen/GI: Negative for abdominal pain, nausea, vomiting, diarrhea, and constipation, Back: Negative for injury and pain, : Negative for injury, bleeding, discharge, and swelling, MS/Extremity: Negative for injury and deformity, Skin: Negative for injury, rash, and discoloration, Neuro: Negative for headache, and seizure. Exam: 15:08 Constitutional: Overweight patient, seems anxious Head/Face: Normocephalic, rn atraumatic. Eyes: Periorbital areas with no swelling, redness, or edema. ENT: Dry mucous membranes Cardiovascular: Tachycardic, regular. Respiratory: No increased work of breathing, no retractions or nasal flaring. Abdomen/GI: Soft, non-tender Skin: Warm, dry MS/ Extremity: Pulses equal, no cyanosis. Neuro: Awake and alert, GCS 15mild extremity tremors and tongue fasciculations. 15:19 ECG was reviewed by the Attending Physician. rn Vital Signs: 14:36 BP 155 / 108; Pulse 120; Resp 18; Temp 97.1; Pulse Ox 100% ; Weight 145.15 kg; Height 5 [facility] ft. 9 in. (175.26 cm); 15:05 BP 160 / 120; Pulse 108; Resp 20; Pulse Ox 100% ; ll3 15:30 BP 153 / 113; Pulse 111; Resp 25; Pulse Ox 100% ; ll3 16:30 BP 168 / 98; Pulse 105; Resp 20; Pulse Ox 96% ; ll3 17:29 BP 169 / 102; Pulse 112; Resp 26; Pulse Ox 99% ; ll3 18:45 BP 145 / 94; Pulse 107; Resp 28; Pulse Ox 100% ; ll3 14:36 Body Mass Index 47.26 (145.15 kg, 175.26 cm) [facility] MDM: 14:40 Patient medically screened. rn 18:05 Differential diagnosis: anxiety, alcoholic ketosis, dehydration, electrolyte disorder, rn alcohol dependence. Data reviewed: vital signs, nurses notes, lab test result(s), EKG, and as a result, I will discharge patient. Counseling: I had a detailed discussion with the patient and/or guardian regarding: the historical points, exam findings, and any diagnostic results supporting the discharge/admit diagnosis, the presence of at least one elevated blood pressure reading (>120/80) during this emergency department visit, lab results, the need for outpatient follow up, to return to the emergency department if symptoms worsen or persist or if there are any questions or concerns that arise at home. Response to treatment: the patient's symptoms have markedly improved after treatment, and as a result, I will discharge patient. ED course: Patient feels much better, chest pain improved and shaking is better. Feels much better after IV fluids. Being supplemented with IV magnesium as well as banana bag. Patient with poorly controlled hypertension and has been out of his lisinopril. Will DC home with instructions to quit drinking gradually to avoid withdrawal, stop binging, and will prescribe lisinopril for blood pressure.. 03/31 14:58 Order name: CBC with Diff; Complete Time: 15:53 03/31 14:58 Order name: Basic Metabolic Panel; Complete Time: 15:53 03/31 14:58 Order name: Troponin (emerg Dept Use Only); Complete Time: 15:53 rn 03/31 14:58 Order name: LFT's; Complete Time: 15:53 03/31 14:58 Order name: Magnesium; Complete Time: 15:53 rn 03/31 14:58 Order name: IV Start; Complete Time: 16:21 rn 03/31 14:58 Order name: EKG; Complete Time: 14:59 rn 03/31 14:58 Order name: EKG - Nurse/Tech; Complete Time: 14:59 rn 03/31 14:58 Order name: Cardiac monitoring; Complete Time: 15:11 rn 03/31 14:58 Order name: O2 Sat Monitoring; Complete Time: 15:11 rn EC:19 Rate is 121 beats/min. Rhythm is regular. QRS [place] is Normal. CO interval is normal. rn QRS interval is normal. QT interval is normal. No Q waves. T waves are Normal. No ST changes noted. Clinical impression: Sinus tachycardia. Interpreted by me. Reviewed by me. Administered Medications: 15:30 Drug: NS 0.9% 1000 ml Route: IV; Rate: 1000 ml; Site: left hand; ll3 16:40 Follow up: Response: No adverse reaction ll3 16:40 Follow up: IV Status: Completed infusion; IV Intake: 1000ml ll3 15:30 Drug: Ativan (LORazepam) 1 mg Route: IVP; Site: left hand; ll3 16:40 Follow up: Response: No adverse reaction ll3 16:39 Drug: Magnesium Sulfate 1 grams Route: IVPB; Infused Over: 1 hrs; Site: left hand; ll3 17:38 Follow up: Response: No adverse reaction; IV Status: Completed infusion ll3 16:39 Drug: Ativan (LORazepam) 1 mg Route: IVP; Site: left hand; ll3 17:14 Follow up: Response: No adverse reaction; Marked relief of symptoms ll3 16:40 Drug: Banana Bag - (NS 0.9% 1000 ml, foLIC Acid 1 mg, Thiamine 100 mg, Multivitamin 1 ll3 amp) Route: IV; Rate: calculated rate; Site: left hand; 18:55 Follow up: Response: No adverse reaction; IV Status: Completed infusion; IV Intake: ll3 1000ml 17:35 Drug: cloNIDine 0.1 mg Route: PO; ll3 18:29 Follow up: Response: No adverse reaction ll3 18:46 Drug: Phenergan (promethazine) 12.5 mg Route: IVP; Site: left hand; ll3 18:54 Follow up: Response: No adverse reaction; Nausea is decreased ll3 Disposition Summary: 03/31/21 18:09 Discharge Ordered Location: Home rn Problem: new rn Symptoms: have improved rn Condition: Stable rn Diagnosis - Chest pain, unspecified rn - Alcohol abuse rn - Essential (primary) hypertension rn Followup: rn - With: Private Physician - When: As needed - Reason: Recheck today's complaints, Re-evaluation by your physician Discharge Instructions: - Discharge Summary Sheet rn - Nonspecific Chest Pain, Adult rn - Hypertension, Adult rn - Alcohol Abuse and Nutrition rn - How to Take Your Blood Pressure, [id number] rn - Managing Your Hypertension rn Forms: - Medication Reconciliation Form rn - Thank You Letter rn - Antibiotic internal medicine veterinary technician - Prescription Opioid Use rn Prescriptions: - Lisinopril 10 mg Oral Tablet - take 1 tablet by ORAL route once daily; 60 tablet; Refills: 0, Product rn Selection Permitted Signatures: Dispatcher [employer] EDShiva Marquez MD MD rn Rees, Jessica, RN RN [facility] Loubet, Lynsea, RN RN ll3
[2021-03-31] MEDS ORDERED: PROMETHAZINE INJ 25 MG/ML AMP ONE (18:32)
[2021-03-31 19:16] VITALS: TEMP 97.1
[2021-03-31 19:23] VITALS: BP 145/94; O2SAT 100
--- NOTE | 2021-04-01 16:54 | EKG ---
Test Date: 2021-03-31 Test Time: 14:35:22 Floorleader: ADRIANA MEASUREMENT RESULTS: Intervals: Rate: 121 MO: 140 QRSD: 76 QT: 326 QTc: 462 [place]: P: 59 MO: 140 QRS: 10 T: 18 INTERPRETIVE STATEMENTS: Sinus tachycardia Otherwise normal ECG Compared to ECG 12/29/2017 20:42:57 Sinus rhythm no longer present Sinus arrhythmia no longer present Left ventricular hypertrophy no longer present Electronically Signed On 04-01-21 16:51:18 [employer]UCERNE FARMER by Brandon Franklin
== END 2021-03-31 19:07 | disposition home or self-care (01) ==
LOC: ER 14:30
DX: F10.10 Alcohol abuse, uncomplicated (principal); I10 Essential (primary) hypertension; Z88.0 Allergy status to penicillin
CPT/HCPCS: 36415; 80048; 80076; 83735; 84484; 85025; 93005; 96361; 96365; 96375; 99285; J2550; J3411; J3475; J7030

== ENCOUNTER 2023-01-01 17:01 | Emergency (ER) | payer SELFPAY ==
[2023-01-01] MEDS ORDERED: NA CHLORIDE 0.9% 1,000 ML ONE (17:52)
--- NOTE | 2023-01-01 17:55 | RAD REPORT ---
EXAM DESCRIPTION: CT - Stone Protocol - 01/01/2023 5:26 pm CLINICAL HISTORY: Abd pain;Flank pain COMPARISON: No comparisons TECHNIQUE: Thin cut axial CT imaging of the abdomen and pelvis was performed without IV contrast. Mu ltiplanar reformats were generated and reviewed. All CT scans are performed using dose optimization technique as appropriate and may include automated exposure control or mA/KV adjustment according to patient size. FINDINGS: No suspicious findings in the lung bases. The liver, spleen, and pancreas show no suspicious findings. Gallbladder and biliary tree are also wi thout suspicious finding. Symmetric renal contour, without suspicious parenchymal findings within limits of noncontrast techniq ue. Mild left hydronephrosis. 3 millimeter calculus at the left pelviureteric junction. No hydrourete ronephrosis or radiopaque calculi on the right. No dilated bowel loops or bowel wall thickening. No free air, free fluid or inflammatory stranding. S equelae of gastric bypass and right inguinal hernia repair. Small midline ventral supraumbilical flavio ia containing fat. No suspicious mass or bulky lymphadenopathy. The urinary bladder is without signif icant finding. No suspicious bony findings. IMPRESSION: Mild left hydronephrosis with a 3 millimeter left periureteric junction calculus. The findings were communicated to Freda Jurado on 01/01/2023 at 17:51 hours.
[2023-01-01 17:59] LABS: Specific Gravity 1.027 (1.005-1.030); Urine Bacteria None Seen /HPF (<20); Urine Bilirubin NEGATIVE (Negative); Urine Blood Negative (Negative); Urine Clarity Clear (Clear); Urine Color Yellow (Yellow); Urine Glucose NEGATIVE (Negative); Urine Mucus 1+ /HPF (None Seen); Urine Protein TRACE (Negative); Urine RBC <5 /HPF (None Seen); Urine Urobilinogen 1+ (Normal)
[2023-01-01] MEDS ORDERED: MAGNESIUM SULFATE 1 gm IVPB 1 GM/100 ML BAG IV ONE (18:34)
[2023-01-01] MEDS ORDERED: KETOROLAC 30 MG/ML INJ ONE (18:34)
[2023-01-01] MEDS ORDERED: TAMSULOSIN 0.4 MG SR CAP ONE (18:34)
[2023-01-01 18:54] LABS: Absolute Lymphocytes (CBC) 1.6 K/uL (0.7-4.9); Hematocrit 41.5 % (39.6-49.0); Lymphocytes % 23.5 % (15.3-44.8); MCV 92.3 fL (80-100); MPV 8.9 fL (7.6-11.3); Platelets 233 thou/uL (152-406)
[2023-01-01 19:05] LABS: Albumin 3.2 g/dL (3.4-5.0); Bilirubin Total 0.8 mg/dL (0.2-1.0); Potassium 3.7 mEq/L (3.5-5.1); Protein, Total 6.6 g/dL (6.4-8.2)
--- NOTE | 2023-01-01 19:25 | EDPHYS ---
Physician Documentation [facility] Name: Cheko Moran Age: 37 yrs Sex: Male : 1985 Arrival Date: 01/01/2023 Time: 17:01 Bed 13 Private MD: ED Physician Jorge Ness HPI: 01/01 17:31 This 37 yrs old Male presents to ER via Ambulatory with complaints of Low Back Pain, kb Abdominal Pain. 17:31 The patient complains of pain in the left flank. The pain radiates to the left lower kb quadrant. Onset: The symptoms/episode began/occurred 4 day(s) ago. Modifying factors: The symptoms are alleviated by nothing. the symptoms are aggravated by nothing. Associated signs and symptoms: The patient has no apparent associated signs or symptoms. Severity of pain: At its worst the pain was mild moderate in the emergency department the pain is unchanged. The patient has not experienced similar symptoms in the past. The patient has not recently seen a physician. Historical: - Allergies: 17:21 PENICILLINS; cm10 - PMHx: 17:21 Alcohol dependence; Hypertension; cm10 - PSHx: 17:21 gastric bypass; cm10 - Immunization history:: Adult Immunizations up to date. - Social history:: Smoking status: Patient denies any tobacco usage or history of. ROS: 17:31 Constitutional: Negative for fever, chills, and weight loss. kb 17:31 : Positive for flank pain. 17:31 All other systems are negative. Exam: 17:31 Constitutional: This is a well developed, well nourished patient who is awake, alert, kb and in no acute distress. Head/Face: Normocephalic, atraumatic. ENT: Moist Mucous membranes Cardiovascular: Regular rate and rhythm with a normal S1 and S2. No gallops, murmurs, or rubs. No pulse deficits. Respiratory: Respirations even and unlabored. No increased work of breathing. Talking in full sentences Skin: Warm, dry with normal turgor. Normal color. MS/ Extremity: Pulses equal, no cyanosis. Neurovascular intact. Full, normal range of motion. Neuro: Awake and alert, GCS 15, oriented to person, place, time, and situation. Moves all extremities. Normal gait. 17:31 Abdomen/GI: Inspection: abdomen appears normal, Bowel sounds: normal, Palpation: soft, in all quadrants, mild abdominal tenderness, in the left lower quadrant. 17:31 Back: CVA tenderness, that is mild, is noted on the left. Vital Signs: 17:19 BP 165 / 100; Pulse 73; Resp 16; Temp 98.7; Pulse Ox 100% on R/A; Weight 136.08 kg; cm10 Height 5 ft. 8 in. ; Pain 6/10; 17:19 Body Mass Index 45.61 (136.08 kg, 172.72 cm) cm10 17:19 Pain Scale: Adult cm10 MDM: 17:08 Patient medically screened. kb 17:31 Differential diagnosis: UTI, kidney stone, diverticulitis, dehydration. Data reviewed: kb vital signs, nurses notes. 17:50 Differential diagnosis: nephrolithiasis, pyelonephritis, UTI, diverticulitis. kb Discussion of test interpretation with radiology: I had a discussion with radiology regarding a test interpretation. Discussed CT findings with Dr Kaur. 18:52 Counseling: I had a detailed discussion with the patient and/or guardian regarding the kb historical points, exam findings, and any diagnostic results supporting the discharge/admit diagnosis, lab results, radiology results, the need for outpatient follow up, a urologist, to return to the emergency department if symptoms worsen or persist or if there are any questions or concerns that arise at home. 18:56 Transition of care: After a detail discussion of the patient's case, care is kb transferred to Jorge Ness MD. 01/01 17:15 Order name: CBC with Diff; Complete Time: 18:56 kb 01/01 17:15 Order name: CMP; Complete Time: 19:24 kb 01/01 17:15 Order name: Lipase; Complete Time: 19:24 kb 01/01 17:15 Order name: Urinalysis w/ reflexes; Complete Time: 18:03 kb 01/01 17:15 Order name: CT Stone Protocol; Complete Time: 17:56 kb 01/01 17:15 Order name: IV Saline Lock; Complete Time: 17:40 kb 01/01 17:15 Order name: Labs collected and sent; Complete Time: 17:40 kb Administered Medications: 18:24 Drug: Flomax PO 0.4 mg Route: PO; ml4 18:25 Drug: Magnesium Sulfate IVPB 1 grams Route: IVPB; Infused Over: 1 hrs; Site: left ml4 antecubital; 18:25 Drug: Ketorolac IVP 15 mg Route: IVP; Site: left antecubital; ml4 18:43 Drug: NS 0.9% IV 1000 ml Route: IV; Rate: 1 bolus; Site: left antecubital; ml4 Disposition Summary: 01/01/23 19:25 Discharge Ordered Location: Home [facility] Condition: Stable [facility] Diagnosis - Calculus of kidney with calculus of ureter [facility] Followup: kb - With: Emergency Department - When: As needed - Reason: Worsening of condition Followup: kb - With: Private Physician - When: 2 - 3 days - Reason: Recheck today's complaints, Continuance of care, Re-evaluation by your physician Followup: kb - With: - When: 2 - 3 days - Reason: Recheck today's complaints Discharge Instructions: - Discharge Summary Sheet kb - Kidney Stones, [id number] kb - Dietary Guidelines to Help Prevent Kidney Stones kb Forms: - Medication Reconciliation Form [facility] - Thank You Letter [facility] - Antibiotic Education [facility] - Prescription Opioid Use [facility] - Patient Portal Instructions [facility] - Leadership Thank You Letter [facility] Prescriptions: - Flomax 0.4 mg Oral capsule - take 1 capsule by ORAL route daily .; 10 capsule; Refills: 0, Product Selection kb Permitted - Zofran 4 mg Oral Tablet - take 1 tablet by ORAL route every 6 hours As needed; 12 tablet; Refills: 0, kb Product Selection Permitted - Tramadol 50 mg Oral Tablet - take 1 tablet by ORAL route every 8 hours as needed; 12 tablet; Refills: 0, kb Product Selection Permitted Signatures: Dispatcher [employer] Freda Rasmussen, HEDGE TRIMMER-C HEDGE TRIMMER-Jorge Bush MD MD cha Martinez, Clarissa, RN RN cm10 JI StreeterIII, Rodríguez, RN RN ml4
--- NOTE | 2023-01-01 19:25 | ER ---
Nurse's Notes [facility] Name: Cheko Moran Age: 37 yrs Sex: Male : 1985 Arrival Date: 01/01/2023 Time: 17:01 Bed 13 Private MD: Diagnosis: Calculus of kidney with calculus of ureter Presentation: 01/01 17:19 Chief complaint: Patient states: Left flank pain that radiates to LLQ onset 3 days ago. cm10 Pt also reports nausea. Coronavirus screen: Vaccine status: Patient reports being unvaccinated. Client denies travel out of the [place] in the last 14 days. Ebola Screen: Patient denies travel to an Ebola-affected area in the 21 days before illness onset. No symptoms or risks identified at this time. Initial Sepsis Screen: Does the patient meet any 2 criteria? No. Patient's initial sepsis screen is negative. Does the patient have a suspected source of infection? No. Patient's initial sepsis screen is negative. Risk Assessment: Do you want to hurt yourself or someone else? Patient reports no desire to harm self or others. Onset of symptoms was December 29, 2022. 17:19 Method Of Arrival: Ambulatory cm10 17:19 Acuity: YUVAL 3 cm10 Triage Assessment: 18:15 General: Appears in no apparent distress. comfortable, Behavior is calm, cooperative. ml4 Pain: Complains of pain in left flank Pain does not radiate. Pain currently is 6 out of 10 on a pain scale. Quality of pain is described as aching, Pain began gradually, Is continuous. GI: No deficits noted. Patient currently denies abdominal pain, constipation, diarrhea, incontinence. : Denies burning with urination. Historical: - Allergies: 17:21 PENICILLINS; cm10 - PMHx: 17:21 Alcohol dependence; Hypertension; cm10 - PSHx: 17:21 gastric bypass; cm10 - Immunization history:: Adult Immunizations up to date. - Social history:: Smoking status: Patient denies any tobacco usage or history of. Screenin:14 [facility] ED Fall Risk Assessment (Adult) History of falling in the last 3 months, ml4 including since admission No falls in past 3 months (0 pts) Confusion or Disorientation No (0 pts) Intoxicated or Sedated No (0 pts) Impaired Gait No (0 pts) Mobility Assist Device Used No (0 pt) Altered Elimination No (0 pt) Score/Fall Risk Level 0 - 2 = Low Risk. Abuse screen: Denies threats or abuse. Nutritional screening: No deficits noted. 18:14 Tuberculosis screening: No symptoms or risk factors identified. ml4 Assessment: 18:16 GI: Abd is soft and non tender X 4 quads. ml4 Vital Signs: 17:19 BP 165 / 100; Pulse 73; Resp 16; Temp 98.7; Pulse Ox 100% on R/A; Weight 136.08 kg; cm10 Height 5 ft. 8 in. ; Pain 6/10; 17:19 Body Mass Index 45.61 (136.08 kg, 172.72 cm) cm10 17:19 Pain Scale: Adult cm10 ED Course: 17:07 Patient arrived in ED. im 17:08 Freda Jurado FNP-C [facility]. kb 17:08 Jorge Ness MD is Attending Physician. kb 17:21 Triage completed. cm10 17:21 Arm band placed on Patient placed in an exam room, on a stretcher. cm10 17:24 JI StreeterIII, Rodríguez, RN is Primary Nurse. ml4 17:28 CT Stone Protocol In Process Unspecified. EDMS 18:14 Patient has correct armband on for positive identification. Bed in low position. Call ml4 light in reach. Side rails up X 1. Adult w/ patient. Provided Education on: N/A. 18:16 No provider procedures requiring assistance completed. Inserted saline lock: 18 gauge ml4 in left antecubital area, using aseptic technique. 19:25 Vern Bush MD is Referral Physician. kristie 20:00 IV discontinued, bleeding controlled, Pressure dressing applied. fu Administered Medications: 18:24 Drug: Flomax PO 0.4 mg Route: PO; ml4 18:25 Drug: Magnesium Sulfate IVPB 1 grams Route: IVPB; Infused Over: 1 hrs; Site: left ml4 antecubital; 18:25 Drug: Ketorolac IVP 15 mg Route: IVP; Site: left antecubital; ml4 18:43 Drug: NS 0.9% IV 1000 ml Route: IV; Rate: 1 bolus; Site: left antecubital; ml4 Medication: 18:17 VIS not applicable for this client. ml4 Outcome: 18:17 Condition: good ml4 19:25 Discharge ordered by . kristie 20:00 Discharged to home ambulatory. fu 20:00 Condition: stable 20:00 Discharge instructions given to patient, Instructed on discharge instructions, follow up and referral plans. Demonstrated understanding of instructions, follow-up care, medications, Prescriptions given X 3. 20:01 Patient left the ED. fu Signatures: Dispatcher [employer] EDMS Freda Jurado, TRADE UNION SECRETARY-C TRADE UNION SECRETARY-Jorge Bush MD MD cha Umadhay, Felix, RN RN Sunita Maya Clarissa, RN RN cm10 JI StreeterIII, Rodríguez, RN RN ml4
[2023-01-01 20:24] VITALS: BP 165/100; TEMP 98.7; O2SAT 100
== END 2023-01-01 20:01 | disposition home or self-care (01) ==
LOC: ER 17:01
DX: N20.2 Calculus of kidney with calculus of ureter (principal); F10.20 Alcohol dependence, uncomplicated; I10 Essential (primary) hypertension
CPT/HCPCS: 36415; 74176; 76377; 80053; 81001; 83690; 85025; 96374; 96375; 99284; J3475; J7030

== ENCOUNTER 2023-03-08 07:01 | Emergency (ER) | payer SELFPAY ==
[2023-03-08 07:47] LABS: Absolute Lymphocytes (CBC) 1.8 K/uL (0.7-4.9); Hematocrit 42.7 % (39.6-49.0); Lymphocytes % 15.3 % (15.3-44.8); MCV 90.8 fL (80-100); MPV 9.5 fL (7.6-11.3); Platelets 312 thou/uL (152-406)
[2023-03-08] MEDS ORDERED: NA CHLORIDE 0.9% 1,000 ML ONE (07:48)
[2023-03-08] MEDS ORDERED: ONDANSETRON 4 MG/2 ML VIAL ONE (07:48)
[2023-03-08 08:06] LABS: Albumin 3.5 g/dL (3.4-5.0); Bilirubin Total 0.9 mg/dL (0.2-1.0); Protein, Total 7.5 g/dL (6.4-8.2); Troponin High Sensitivity 15.8 pg/mL (<58.9)
--- NOTE | 2023-03-08 08:22 | RAD REPORT ---
EXAM DESCRIPTION: CT - Abdomen Pelvis W Contrast - 03/08/2023 8:01 am CLINICAL HISTORY: ABD PAIN COMPARISON: Angio Aorta For Dissection dated 10/14/2015. Abdomen CT 01/01/2023 TECHNIQUE: Thin cut axial CT imaging of the abdomen and pelvis was performed following intravenous a dministration of 100 mL Isovue 300. Multiplanar reformats were generated and reviewed. All CT scans are performed using dose optimization technique as appropriate and may include automated exposure control or mA/KV adjustment according to patient size. FINDINGS: 11 millimeter subpleural right lower lobe nodule on axial image 7, stable. Another 4-5 mil limeter partially calcified nodule in the right lower lobe abutting the major fissure is also stable. The liver, spleen, adrenal glands, and pancreas show no suspicious findings. Gallbladder and biliary tree are also without suspicious finding. Symmetric renal function is seen, with a stable 5 millimeter calculus near the left pelviureteric oly ction, with a mild dilation of the left renal pelvis. No stones or radiopaque calculi on the right. Small cysts of the liver and left kidney are benign in appearance. No dilated bowel loops or bowel wall thickening. No free air, free fluid or inflammatory stranding. S mall supraumbilical midline ventral hernia containing fat, and another right upper abdominal small fa t containing ventral hernia are stable. No suspicious mass or bulky lymphadenopathy. The urinary blad tod is without significant finding. No suspicious bony findings. IMPRESSION: Stable 5 millimeter left pelviureteric junction calculus with mild left hydronephrosis. No other acute intra-abdominal process. Stable incidental findings as above.
--- NOTE | 2023-03-08 08:25 | RAD REPORT ---
[facility] 8[facility]04 am CLINICAL HISTORY: PALPITATIONS COMPARISON: Chest Single View dated 12/29/2017; Chest Single View dated 02/28/2017; Chest Single View dated 10/14/2015; CHEST PA AND LAT 2 VIEW dated 11/22/2012 TECHNIQUE: Portable AP view of the chest. FINDINGS: The lungs are clear. No pneumothorax or effusion. The cardiomediastinal contours are unre markable. IMPRESSION: No acute cardiopulmonary process.
[2023-03-08 09:08] LABS: Urine Bacteria <20 /HPF (<20); Urine Bilirubin NEGATIVE (Negative); Urine Blood 3+ (OVER) (Negative); Urine Clarity Clear (Clear); Urine Color Light-Orange (Yellow); Urine Glucose NEGATIVE (Negative); Urine Mucus 1+ /HPF (None Seen); Urine Protein 1+ (Negative); Urine RBC >50 /HPF (None Seen); Urine Urobilinogen Normal (Normal)
[2023-03-08 09:14] LABS: Specific Gravity > 1.030 (1.005-1.030)
--- NOTE | 2023-03-08 10:00 | EDPHYS ---
Physician Documentation [facility] Name: Cheko Moran Age: 37 yrs Sex: Male : 1985 Arrival Date: 03/08/2023 Time: 07:01 Bed 18 Private MD: ED Physician Solitario Ribera HPI: 03/08 07:34 This 37 yrs old Male presents to ER via Ambulatory with complaints of ec2 Nausea/Vomiting, Syncope, Chest Pain, GI Bleeding. 07:34 Patient arrives today due to concern for palpitations with associated lightheadedness ec2 and rectal bleeding. Patient states that approximately 4 hours ago he felt lightheaded as well as sweaty when he went to the bathroom subsequently had a bowel movement that had coagulated blood. Patient reports some associated nausea during this time without vomiting. Patient denies any significant chest pain or shortness of breath however does feel palpitations. He states that he has no history of cardiac disease, does have a history of gastric sleeve otherwise is not on medications. Patient reports history of previous hernia repair. Patient is not on blood thinners. Patient states that his symptoms have markedly improved since this time however still feels a little bit of palpitations and lightheadedness. Patient denies any previous GI pathology, no previous rectal bleeding.. Historical: - Allergies: 07:14 PENICILLINS; iw - PMHx: 07:14 Alcohol dependence; Hypertension; iw - PSHx: 07:14 Gastric Bypass; iw ROS: 07:34 Constitutional: lightheadedness, rectal bleeding, palpitations ec2 Exam: 07:34 Constitutional: GEN: NAD Head: atraumatic Eyes: EOMI Ears: External ears are ec2 normal. CV: Tachycardia LUNGS: no respiratory distress ABD: non-distended, soft, nontender, no guarding, not rigid : No fissures, no masses, no hemorrhoids, does have maroon-colored stool on VISH. SKIN: no evidence of rashes MSK: no evidence of trauma NEURO: moves all extremities equally Vital Signs: 07:14 BP 145 / 101; Pulse 129; Resp 18; Temp 98.5(O); Pulse Ox 99% on R/A; Weight 127.01 kg; iw Height 5 ft. 9 in. ; 07:41 BP 135 / 78; Pulse 106; Resp 14 S; Pulse Ox 98% on R/A; kc6 08:00 BP 129 / 96; Pulse 104; ec2 08:08 BP 135 / 92; Pulse 102; ec2 08:21 BP 133 / 97; Pulse 88; Resp 18 S; Pulse Ox 100% on R/A; kc6 09:33 BP 137 / 90; Pulse 87; Resp 17 S; Pulse Ox 99% on R/A; kc6 07:14 Body Mass Index 41.35 (127.01 kg, 175.26 cm) iw MDM: 07:11 Patient medically screened. ec2 07:34 ED course: Patient arrives today due to concern for multiple complaints. Examination ec2 remarkable for maroon-colored stool on VISH otherwise does have slight tachycardia appreciated with a generally benign abdomen. Will obtain lab work, EKG, chest x-ray as well as CT scan of the abdomen pelvis. We will give the patient crystalloid as well as antiemetic. Currently consenting process such as diverticulosis, ACS, low suspicion for process such as PE or dissection.. 07:36 ED course: EKG independently reviewed and interpreted by me, shows sinus tachycardia, ec2 rate 115, no acute ST segment elevations, intervals nonconcerning.. 08:08 ED course: Patient's lab work remarkable for a CBC with a white count of 12, CMP with ec2 overall reassuring electrolytes, renal profile and liver profile. Lipase within normal ranges, troponin within normal ranges. . 08:28 ED course: CT abdomen pelvis shows left 5 mm kidney stone with mild hydronephrosis. No ec2 acute intra-abdominal process noted. This was previously seen in the past. Patient to follow-up with urology as an outpatient for this. Chest x-ray shows no acute intrathoracic process. . 08:28 ED course: Patient ultimately with reassuring blood work, no melena appreciated on VISH, ec2 no significant anemia, no hemodynamic instability to require emergent inpatient admission. I will discharge patient home and have him follow-up with a GI doctor. . 09:48 ED course: Urine shows RBCs present which would be consistent with the nephrolithiasis. ec2 Some WBCs noted, patient does not paint and overwhelmingly infectious pressure, I have a low clinical suspicion for UTI. Will discharge home with referrals to GI as well as urology. . 10:00 Data reviewed: vital signs. ec2 03/08 07:31 Order name: CBC with Diff; Complete Time: 08:07 ec2 03/08 07:31 Order name: CMP; Complete Time: 08:07 ec2 03/08 07:31 Order name: Lipase; Complete Time: 08:07 ec2 03/08 07:31 Order name: Troponin HS; Complete Time: 08:07 ec2 03/08 08:27 Order name: Urinalysis w/ reflexes; Complete Time: 09:47 ec2 03/08 09:17 Order name: Urine Culture EDMS 03/08 07:31 Order name: CT Abd/Pelvis - IV Contrast Only; Complete Time: 08:27 ec2 03/08 07:31 Order name: CXR XRAY; Complete Time: 08:27 ec2 03/08 07:31 Order name: IV Saline Lock; Complete Time: 07:33 ec2 03/08 07:31 Order name: Labs collected and sent; Complete Time: 07:33 ec2 Administered Medications: 07:41 Drug: NS 0.9% IV 1000 ml IV at 1 bolus Per protocol; 1000 mL bolus Route: IV; Rate: 1 kc6 bolus; Site: right antecubital; 10:03 Follow up: Response: No adverse reaction; IV Status: Completed infusion; IV Intake: kc6 1000ml 07:41 Drug: Ondansetron IVP 4 mg IVP once; over 2 minutes Route: IVP; Site: right antecubital;kc6 08:12 Follow up: Response: No adverse reaction; Nausea is decreased kc6 Disposition Summary: 03/08/23 10:00 Discharge Ordered Notes: Location: Home ec2 Condition: Stable ec2 Diagnosis - Rectal Bleeding ec2 - Kidney Stone ec2 Followup: ec2 - With: Angel Bone MD - When: 10 - 14 days - Reason: Recheck today's complaints Followup: ec2 - With: Vern Bush MD - When: - Reason: Recheck today's complaints Forms: - Medication Reconciliation Form ec2 - Thank You Letter ec2 - Antibiotic Education ec2 - Prescription Opioid Use ec2 - Patient Portal Instructions ec2 - Leadership Thank You Letter ec2 Signatures: Dispatcher [employer] Kimberly Alexandra RN RN iw Campbell, Kaitlyn, RN RN kc6 Solitario Ribera MD MD ec2 Corrections: (The following items were deleted from the chart) 08:11 08:08 BP 135 / 92; Pulse 99bpm; ec2 ec2
--- NOTE | 2023-03-08 10:00 | ER ---
Nurse's Notes [facility] Name: Cheko Moran Age: 37 yrs Sex: Male : 1985 Arrival Date: 03/08/2023 Time: 07:01 Bed 18 Private MD: Diagnosis: Rectal Bleeding;Kidney Stone Presentation: 03/08 07:12 Chief complaint: Patient states: feeling weird, sweating last night, he was burning up, iw had a BM and it was all blood, felt faint , puked and it was blood, had a gastric bypass in August. Coronavirus screen: At this time, the client does not indicate any symptoms associated with coronavirus-19. Ebola Screen: Patient negative for fever greater than or equal to 101.5 degrees Fahrenheit, and additional compatible Ebola Virus Disease symptoms Patient denies exposure to infectious person. Patient denies travel to an Ebola-affected area in the 21 days before illness onset. No symptoms or risks identified at this time. Initial Sepsis Screen: Does the patient have a suspected source of infection?. Initial Sepsis Screen: Does the patient meet any 2 criteria?. Risk Assessment: Do you want to hurt yourself or someone else? Patient reports no desire to harm self or others. Onset of symptoms was March 08, 2023. 07:12 Method Of Arrival: Ambulatory iw 07:12 Acuity: YUVAL 2 iw Historical: - Allergies: 07:14 PENICILLINS; iw - PMHx: 07:14 Alcohol dependence; Hypertension; iw - PSHx: 07:14 Gastric Bypass; iw Screenin:28 [facility] ED Fall Risk Assessment (Adult) History of falling in the last 3 months, kc6 including since admission No falls in past 3 months (0 pts) Confusion or Disorientation No (0 pts) Intoxicated or Sedated No (0 pts) Impaired Gait No (0 pts) Mobility Assist Device Used No (0 pt) Altered Elimination No (0 pt) Score/Fall Risk Level 0 - 2 = Low Risk. Abuse screen: Denies threats or abuse. Denies injuries from another. Nutritional screening: No deficits noted. Tuberculosis screening: No symptoms or risk factors identified. Assessment: 07:28 General: Appears in no apparent distress. uncomfortable, ill, Behavior is calm, kc6 cooperative, appropriate for age, Reports feeling ill for 12-24 hours. Pain: Complains of pain in abdomen. Neuro: Level of Consciousness is awake, alert, obeys commands, Oriented to person, place, time, situation, Appropriate for age. Cardiovascular: Denies chest pain, Heart tones S1 S2 present Capillary refill < 3 seconds Rhythm is sinus tachycardia. Respiratory: Airway is patent Trachea midline Respiratory effort is even, unlabored, Respiratory pattern is regular, symmetrical, Denies shortness of breath. GI: Abdomen is flat, non-distended, Bowel sounds present X 4 quads. Abd is soft X 4 quads Reports rectal bleeding, bloody stool, nausea, vomiting. : No signs and/or symptoms were reported regarding the genitourinary system. EENT: No signs and/or symptoms were reported regarding the EENT system. Derm: No signs and/or symptoms reported regarding the dermatologic system. Skin is healthy with good turgor, Skin is diaphoretic, Skin is normal, Skin temperature is warm. Musculoskeletal: No signs and/or symptoms reported regarding the musculoskeletal system. Circulation, motion, and sensation intact. Capillary refill < 3 seconds, Range of motion: intact in all extremities. 08:21 Reassessment: Patient appears in no apparent distress at this time. No changes from kc6 previously documented assessment. Patient and/or family updated on plan of care and expected duration. Pain level reassessed. Patient is alert, oriented x 3, equal unlabored respirations, skin warm/dry/pink. 09:33 Reassessment: Patient appears in no apparent distress at this time. No changes from kc6 previously documented assessment. Patient and/or family updated on plan of care and expected duration. Pain level reassessed. Patient is alert, oriented x 3, equal unlabored respirations, skin warm/dry/pink. Vital Signs: 07:14 BP 145 / 101; Pulse 129; Resp 18; Temp 98.5(O); Pulse Ox 99% on R/A; Weight 127.01 kg; iw Height 5 ft. 9 in. ; 07:41 BP 135 / 78; Pulse 106; Resp 14 S; Pulse Ox 98% on R/A; kc6 08:00 BP 129 / 96; Pulse 104; ec2 08:08 BP 135 / 92; Pulse 102; ec2 08:21 BP 133 / 97; Pulse 88; Resp 18 S; Pulse Ox 100% on R/A; kc6 09:33 BP 137 / 90; Pulse 87; Resp 17 S; Pulse Ox 99% on R/A; kc6 07:14 Body Mass Index 41.35 (127.01 kg, 175.26 cm) iw ED Course: 07:03 Patient arrived in ED. jj6 07:11 Solitario Ribera MD is Attending Physician. ec2 07:14 Triage completed. iw 07:14 Arm band placed on. iw 07:24 Inserted saline lock: 18 gauge in right antecubital area, using aseptic technique. iw Blood collected. 07:28 Anu Sullivan, RN is Primary Nurse. kc6 07:28 Patient has correct armband on for positive identification. Placed in gown. Bed in low kc6 position. Call light in reach. Side rails up X2. Client placed on continuous cardiac and pulse oximetry monitoring. NIBP monitoring applied. clinical research monitor on. 07:29 EKG done, by ED staff, reviewed by Solitario Ribera MD. em1 08:03 CT Abd/Pelvis - IV Contrast Only In Process Unspecified. EDMS 08:05 CXR XRAY In Process Unspecified. EDMS 09:59 Angel Bone MD is Referral Physician. ec2 09:59 Vern Bush MD is Referral Physician. ec2 10:09 No provider procedures requiring assistance completed. IV discontinued, intact, kc6 bleeding controlled, No redness/swelling at site. Pressure dressing applied. Administered Medications: 07:41 Drug: NS 0.9% IV 1000 ml IV at 1 bolus Per protocol; 1000 mL bolus Route: IV; Rate: 1 kc6 bolus; Site: right antecubital; 10:03 Follow up: Response: No adverse reaction; IV Status: Completed infusion; IV Intake: kc6 1000ml 07:41 Drug: Ondansetron IVP 4 mg IVP once; over 2 minutes Route: IVP; Site: right antecubital;kc6 08:12 Follow up: Response: No adverse reaction; Nausea is decreased kc6 Medication: 10:09 VIS not applicable for this client. kc6 Intake: 10:03 IV: 1000ml; Total: 1000ml. kc6 Outcome: 10:00 Discharge ordered by MD. ec2 10:09 Discharged to home ambulatory, with significant other, kc6 10:09 Condition: stable 10:09 Discharge instructions given to patient, Instructed on discharge instructions, follow up and referral plans. Demonstrated understanding of instructions, follow-up care, 10:10 Patient left the ED. kc6 Signatures: Dispatcher [employer] Kimberly Alexandra, JI RN Phi Bundy em1 Bonnie Parisj6 Anu Sullivan RN RN kc6 Solitario Ribera MD MD ec2 Corrections: (The following items were deleted from the chart) 07:24 07:14 BP 145 / 101; Pulse 129bpm; Resp 18bpm; Pulse Ox 99% RA; 127.01 kg; Height 5 ft. iw 9 in.; BMI: 41.3; iw
--- NOTE | 2023-03-09 11:59 | EKG ---
Test Date: 2023-03-08 Test Time: 07:24:16 Provider Service Representative: DARIAN MEASUREMENT RESULTS: Intervals: Rate: 115 AK: 130 QRSD: 72 QT: 322 QTc: 445 [place]: P: 64 AK: 130 QRS: 50 T: 47 INTERPRETIVE STATEMENTS: Sinus tachycardia Otherwise normal ECG Compared to ECG 03/31/2021 14:35:22 No significant changes Electronically Signed On 03-09-23 11:54:39 CDT by Satish Moya
== END 2023-03-08 10:10 | disposition home or self-care (01) ==
LOC: ER 07:01
DX: N20.0 Calculus of kidney (principal)
CPT/HCPCS: 36415; 71045; 74177; 80053; 81001; 83690; 84484; 85025; 87086; 87088; 93005; 96361; 96374; 99285; J2405; J7030; Q9967

== ENCOUNTER 2023-03-09 08:58 | Emergency (ER) | payer SELFPAY ==
--- NOTE | 2023-03-09 09:26 | ER ---
Nurse's Notes [facility] Name: Cheko Moran Age: 37 yrs Sex: Male : 1985 Arrival Date: 03/09/2023 Time: 08:58 Bed 8 Private MD: Diagnosis: Epigastric pain-gastroc bypass august 2022;GI Bleed/ Gastrointestinal hemorrhage, unspecified-upper ;Syncope Near;Acute posthemorrhagic anemia;Weakness Presentation: 03/09 09:01 Chief complaint: Patient states: was seen here yesterday for kidney stone and GI bleed, iw states he is still having multiple episodes of blood in stool, feels faint. Coronavirus screen: At this time, the client does not indicate any symptoms associated with coronavirus-19. Ebola Screen: Patient negative for fever greater than or equal to 101.5 degrees Fahrenheit, and additional compatible Ebola Virus Disease symptoms Patient denies exposure to infectious person. Patient denies travel to an Ebola-affected area in the 21 days before illness onset. No symptoms or risks identified at this time. Initial Sepsis Screen: Does the patient meet any 2 criteria? No. Patient's initial sepsis screen is negative. Does the patient have a suspected source of infection? No. Patient's initial sepsis screen is negative. Risk Assessment: Do you want to hurt yourself or someone else? Patient reports no desire to harm self or others. Onset of symptoms was March 08, 2023. 09:01 Method Of Arrival: Wheelchair iw 09:02 Acuity: YUVAL 3 iw Historical: - Allergies: 09:02 PENICILLINS; iw - PMHx: 09:02 Alcohol dependence; Hypertension; iw - PSHx: 09:02 Gastric Bypass; iw - Social history:: Patient uses alcohol, occasionally. Screenin:33 [facility] ED Fall Risk Assessment (Adult) History of falling in the last 3 months, aa5 including since admission No falls in past 3 months (0 pts) Confusion or Disorientation No (0 pts) Intoxicated or Sedated No (0 pts) Impaired Gait No (0 pts) Mobility Assist Device Used No (0 pt) Altered Elimination No (0 pt) Score/Fall Risk Level 0 - 2 = Low Risk Oriented to surroundings, Maintained a safe environment, Educated pt \T\ family on fall prevention, incl call for assistance when getting out of bed. Abuse screen: Denies threats or abuse. Nutritional screening: No deficits noted. Tuberculosis screening: No symptoms or risk factors identified. Assessment: 09:20 General: Appears uncomfortable, Behavior is calm, cooperative. Pain: Denies pain. aa5 Neuro: Level of Consciousness is awake, alert, obeys commands, Oriented to person, place, time, situation, Reports dizziness, generalized weakness. Cardiovascular: Heart tones S1 S2 present Rhythm is sinus tachycardia. Respiratory: Airway is patent Respiratory effort is even, unlabored, Respiratory pattern is regular, symmetrical. GI: Abdomen is round non-distended, Bowel sounds present X 4 quads. Abd is soft and non tender X 4 quads. Reports bloody stool, nausea, since 03/07/23. : Reports dx with kidney stone yesterday Denies inability to void. EENT: No signs and/or symptoms were reported regarding the EENT system. Derm: Skin is dry, Skin is pale, Skin temperature is warm. Musculoskeletal: Range of motion: intact in all extremities. 09:45 Neuro: Level of Consciousness is awake, alert, obeys commands, Oriented to person, aa5 place, time, situation. Respiratory: Airway is patent Respiratory effort is even, unlabored, Respiratory pattern is regular, symmetrical. Derm: Skin is dry, Skin is pale, Skin temperature is warm. 10:20 Neuro: Level of Consciousness is awake, alert, obeys commands, Oriented to person, aa5 place, time, situation. Respiratory: Airway is patent Respiratory effort is even, unlabored, Respiratory pattern is regular, symmetrical. Derm: Skin is dry, Skin is pale, Skin temperature is warm. 10:40 Reassessment: Pt ambulatory to restroom with steady gait. Pt declined wheelchair and aa5 declined bedside commode. . 10:45 Reassessment: Pt back from restroom, pt states he had rectal bleeding episode in 5 restroom. . 10:58 Reassessment: Currently on hold attempting to give report to [facility]. . aa5 11:10 Reassessment: Attempted to give report to nurse at [facility], nurse real estate firm manager, aa5 Tayler, states she will call me back for report. . 11:20 General: Appears comfortable, Behavior is calm, cooperative. Neuro: Level of aa5 Consciousness is awake, alert, obeys commands, Oriented to person, place, time, situation. Respiratory: Airway is patent Respiratory effort is even, unlabored, Respiratory pattern is regular, symmetrical. Derm: Skin is dry, Skin is pale, Skin temperature is warm. 11:20 Reassessment: Pt aware of wait time for transfer. . aa5 12:55 Reassessment: Report given to nurse at [facility]. Currently awaiting EMS for aa5 transfer. . 12:57 Neuro: Level of Consciousness is awake, alert, obeys commands, Oriented to person, aa5 place, time, situation. Respiratory: Airway is patent Respiratory effort is even, unlabored, Respiratory pattern is regular, symmetrical. Derm: Skin is dry, Skin is pale, Skin temperature is warm. 13:15 Neuro: Level of Consciousness is awake, alert, obeys commands, Oriented to person, aa5 place, time, situation. Respiratory: Airway is patent Respiratory effort is even, unlabored, Respiratory pattern is regular, symmetrical. Derm: Skin is dry, Skin is pale, Skin temperature is warm. Vital Signs: 09:01 BP 139 / 93; Pulse 111; Resp 16; Temp 98(TE); Pulse Ox 99% on R/A; iw 09:45 BP 120 / 70; Pulse 103; Resp 19 S; Pulse Ox 99% on R/A; aa5 10:20 BP 122 / 78; Pulse 100; Resp 17 S; Pulse Ox 100% on R/A; aa5 12:00 BP 122 / 79; Pulse 91; Resp 16 S; Temp 97.6(TE); Pulse Ox 100% on R/A; aa5 12:45 BP 111 / 66; Pulse 95; Resp 18 S; Pulse Ox 100% on R/A; aa5 Jber Coma Score: 09:15 Eye Response: spontaneous(4). Motor Response: obeys commands(6). Verbal Response: kristie oriented(5). Total: 15. NIH Stroke Scale Scores: 09:15 NIHSS Score: 0 kristie ED Course: 09:00 Patient arrived in ED. iw 09:02 Triage completed. iw 09:02 Arm band placed on. iw 09:04 Jorge Ness MD is Attending Physician. kristie 09:20 Patient has correct armband on for positive identification. Placed in gown. Bed in low aa5 position. Call light in reach. Side rails up X2. Client placed on continuous cardiac and pulse oximetry monitoring. NIBP monitoring applied. 09:33 Initial lab(s) drawn, by me, sent to lab. Inserted saline lock: 18 gauge in right aa5 forearm, using aseptic technique. Blood collected. 09:38 initiated transfer to [facility]. bd 09:39 Beatriz Castro, RN is Primary Nurse. aa5 09:45 Inserted saline lock: 18 gauge in left antecubital area, using aseptic technique. aa5 09:50 XRAY Chest (1 view) In Process Unspecified. EDMS 10:55 pt accepted in transfer to [facility] by dr North, admin approval given by tim Penaloza,pt going to [id number]. 11:45 Inserted saline lock: 20 gauge in left hand, using aseptic technique. aa5 13:15 No provider procedures requiring assistance completed. Patient transferred, IV remains aa5 in place. Administered Medications: 09:48 Drug: Ondansetron IVP 4 mg IVP once; over 2 minutes Route: IVP; Site: right forearm; aa5 10:00 Follow up: Response: No adverse reaction aa5 09:50 Drug: NS 0.9% IV 1000 ml IV at 1 bolus Per protocol; 1000 mL bolus Route: IV; Rate: 1 aa5 bolus; Site: right forearm; 10:50 Follow up: IV Status: Completed infusion; IV Intake: 1000ml aa5 09:50 Drug: Pantoprazole IVP 80 mg IVP once Route: IVP; Site: right forearm; aa5 10:00 Follow up: Response: No adverse reaction aa5 09:50 Drug: Banana Bag - (Multivitamin IV 1 amp, NS 0.9% IV 1000 ml, Thiamine IV 100 mg, aa5 foLIC Acid IVPB 1 mg) IV at 500 ml/hr once Route: IV; Rate: 500 ml/hr; Site: right forearm; 11:50 Follow up: IV Status: Completed infusion aa5 10:30 Drug: Pantoprazole IV 8 mg/hr IV at 25 ml/hr continuous; (Standard dilution is 80 mg in rs5 250 mL NS) Route: IV; Rate: 25 ml/hr; Site: left antecubital; 13:15 Follow up: IV Status: Infusion continued upon transfer aa5 Medication: 13:00 VIS not applicable for this client. aa5 Intake: 10:50 IV: 1000ml; Total: 1000ml. aa5 Outcome: 09:26 ER care complete, transfer ordered by MD. flowers 13:15 Transferred by ground EMS to [facility], Transfer form completed. aa5 X-rays sent w/ patient. Note: Report given to [facility] 13:15 Condition: stable 13:15 Instructed on the need for transfer, Demonstrated understanding of instructions, 13:18 Patient left the ED. aa5 NIH Stroke Scale - NIH Stroke Score Date: 03/09/2023 Time: 09:15 Total Score = 0 10. Dysarthria (speech clarity - read or repeat words) - 0(Normal) 11. Extinction and Inattention (visual/tactile/auditory/spatial/personal) - 0(No abnormality) 1a. Level of Consciousness (LOC) - 0(Alert) 1b. Level of Consciousness (LOC) (Month \T\ Age) - 0(Both) 1c. LOC Commands (Open \T\ Closes Eyes/Software Project Lead) - 0(Both) 2. Best Gaze (Lateral Gaze Paresis) - 0(Normal) 3. Visual Field Loss - 0(No visual loss) 4. Facial Palsy - 0(Normal) 5a. Left Arm: Motor (10-second hold) - 0(No drift) 5b. Right Arm: Motor (10-second hold) - 0(No drift) 6a. Left Leg: Motor (5-second hold - always test supine) - 0(No drift) 6b. Right Leg: Motor (5-second hold - always test supine) - 0(No drift) 7. Limb Ataxia (finger/nose \T\ heel/moran - test with eyes open) - 0(Absent) 8. Sensory Loss (pinprick arms/legs/face) - 0(Normal) 9. Best Language: Aphasia (description/naming/reading) - 0(No aphasia) Initials: kristie Signatures: Dispatcher [employer] EDMS Amy Crow Corey, MD MD cha Williams, Irene, Beatriz Rose RN, RN RN aa5 Royce Pickering RN RN rs5 Corrections: (The following items were deleted from the chart) 09:35 09:01 BP 139 / 93; Pulse 111bpm; Resp 16bpm; Pulse Ox 99% RA; iw iw 09:36 09:01 BP 139 / 93; Pulse 111bpm; Resp 16bpm; Pulse Ox 99% RA; Temp 98F iw Temporal; iw 13:00 Transferred by ground EMS to [facility], Transfer form aa5 completed. X-rays sent w/ patient. Note: Report given to [facility] aa5 : 13:00 Condition: stable aa5 aa5 13: Instructed on the need for transfer, Demonstrated understanding of aa5 instructions, aa5
--- NOTE | 2023-03-09 09:26 | EDPHYS ---
Physician Documentation [facility] Name: Cheko Moran Age: 37 yrs Sex: Male : 1985 Arrival Date: 03/09/2023 Time: 08:58 Bed 8 Private MD: ED Physician Jorge Ness HPI: 03/09 09:13 This 37 yrs old Male presents to ER via Wheelchair with complaints of GI kristie Bleeding. 09:13 The patient presents to the emergency department with rectal bleeding, melena. Onset: kristie The symptoms/episode began/occurred yesterday. Abdominal pain: described as crampy. Modifying factors: The symptoms are alleviated by nothing, the symptoms are aggravated by nothing. Associated signs and symptoms: Pertinent positives: dizziness when standing, syncope, near-syncope. Severity of symptoms: At their worst the symptoms were moderate in the emergency department the symptoms are unchanged. The patient has experienced a previous episode, yesterday. Historical: - Allergies: 09:02 PENICILLINS; iw - PMHx: 09:02 Alcohol dependence; Hypertension; iw - PSHx: 09:02 Gastric Bypass; iw - Social history:: Patient uses alcohol, occasionally. ROS: 09:15 Constitutional: Negative for fever, chills, and weight loss, Eyes: Negative for injury, kristie pain, redness, and discharge, ENT: Negative for injury, pain, and discharge, Neck: Negative for injury, pain, and swelling, Respiratory: Negative for shortness of breath, cough, wheezing, and pleuritic chest pain, Back: Negative for injury and pain, : Negative for injury, bleeding, discharge, and swelling, MS/Extremity: Negative for injury and deformity, Skin: Negative for injury, rash, and discoloration, Psych: Negative for depression, anxiety, suicide ideation, homicidal ideation, and hallucinations, Allergy/Immunology: Negative for hives, rash, and allergies, Endocrine: Negative for neck swelling, polydipsia, polyuria, polyphagia, and marked weight changes, 09:15 Cardiovascular: Positive for palpitations, 09:15 Abdomen/GI: Positive for black/tarry stool, rectal bleeding, 09:15 Skin: Positive for pallor, 09:15 Neuro: Positive for syncope, near syncope, weakness, Exam: 09:15 Constitutional: This is a well developed, well nourished patient who is awake, alert, kristie and in no acute distress. Head/Face: Normocephalic, atraumatic. Eyes: Pupils equal round and reactive to light, extra-ocular motions intact. Lids and lashes normal. Conjunctiva and sclera are non-icteric and not injected. Cornea within normal limits. Periorbital areas with no swelling, redness, or edema. ENT: Nares patent. No nasal discharge, no septal abnormalities noted. Tympanic membranes are normal and external auditory canals are clear. Oropharynx with no redness, swelling, or masses, exudates, or evidence of obstruction, uvula midline. Mucous membranes moist. Neck: Trachea midline, no thyromegaly or masses palpated, and no cervical lymphadenopathy. Supple, full range of motion without nuchal rigidity, or vertebral point tenderness. No Meningismus. Chest/axilla: Normal chest wall appearance and motion. Nontender with no deformity. No lesions are appreciated. Respiratory: Lungs have equal breath sounds bilaterally, clear to auscultation and percussion. No rales, rhonchi or wheezes noted. No increased work of breathing, no retractions or nasal flaring. Back: No spinal tenderness. No costovertebral tenderness. Full range of motion. Male : Normal genitalia with no discharge or lesions. MS/ Extremity: Pulses equal, no cyanosis. Neurovascular intact. Full, normal range of motion. Neuro: Awake and alert, GCS 15, oriented to person, place, time, and situation. Cranial nerves II-XII grossly intact. Motor strength 5/5 in all extremities. Sensory grossly intact. Cerebellar exam normal. Normal gait. Psych: Awake, alert, with orientation to person, place and time. Behavior, mood, and affect are within normal limits. 09:15 Cardiovascular: Rate: tachycardic, actual rate is 111 bpm, Rhythm: regular, Pulses: Pulses are 4+ in bilateral radial, brachial, femoral, popliteal, posterior tibial and and dorsalis pedis arteries.. Heart sounds: normal, Edema: is not appreciated, JVD: is not appreciated, 09:15 Skin: Appearance: Color: pale, 09:55 ECG was reviewed by the Attending Physician. [facility] Vital Signs: 09:01 BP 139 / 93; Pulse 111; Resp 16; Temp 98(TE); Pulse Ox 99% on R/A; iw 09:45 BP 120 / 70; Pulse 103; Resp 19 S; Pulse Ox 99% on R/A; aa5 10:20 BP 122 / 78; Pulse 100; Resp 17 S; Pulse Ox 100% on R/A; aa5 12:00 BP 122 / 79; Pulse 91; Resp 16 S; Temp 97.6(TE); Pulse Ox 100% on R/A; aa5 12:45 BP 111 / 66; Pulse 95; Resp 18 S; Pulse Ox 100% on R/A; aa5 NIH Stroke Scale Scores: 09:15 NIHSS Score: 0 kristie [place] Coma Score: 09:15 Eye Response: spontaneous(4). Motor Response: obeys commands(6). Verbal Response: kristie oriented(5). Total: 15. MDM: 09:04 Patient medically screened. kristie 09:18 Differential diagnosis: gastritis, diverticulitis, hemorrhagic shock, varices. kristie Differential Diagnosis: cardiac arrhythmia, vasovagal episode. Data reviewed: vital signs, nurses notes, lab test result(s), EKG, radiologic studies, CT scan, plain films. Consideration of Admission/Observation Escalation of care including admission/observation considered. I considered the following discharge prescriptions or medication management in the emergency department Medications were administered in the Emergency Department. See MAR. Test considered but Not performed: CT: no ct abd pelvis. Historians other than the Patient: Spouse/Significant Other: . Care significantly affected by the following chronic conditions: Hypertension, alcohol abuse. Counseling: I had a detailed discussion with the patient and/or guardian regarding the historical points, exam findings, and any diagnostic results supporting the discharge/admit diagnosis, lab results, radiology results, the need to transfer to another facility, for higher level of care, [facility] does not immediately have the required specialist. 03/09 09:05 Order name: Basic Metabolic Panel; Complete Time: 10:45 kristie 03/09 09:05 Order name: CBC with Diff; Complete Time: 10:29 kristie 03/09 09:05 Order name: LFT's; Complete Time: 10:45 kristie 03/09 09:05 Order name: Magnesium; Complete Time: 10:45 kristie 03/09 09:05 Order name: NT PRO-BNP; Complete Time: 10:45 kristie 03/09 09:05 Order name: PT-INR; Complete Time: 10:29 kristie 24 09:05 Order name: Troponin HS; Complete Time: 10:45 03/09 09:05 Order name: Lipase; Complete Time: 10:45 03/09 09:05 Order name: Type And Screen 03/09 09:05 Order name: XRAY Chest (1 view); Complete Time: 10:29 03/09 09:05 Order name: EKG; Complete Time: 09:06 03/09 09:05 Order name: Cardiac monitoring; Complete Time: 09:40 03/09 09:05 Order name: EKG - Nurse/Tech; Complete Time: 09:55 03/09 09:05 Order name: IV Saline Lock; Complete Time: 09:40 03/09 09:05 Order name: Labs collected and sent; Complete Time: 09:40 03/09 09:05 Order name: O2 Per Protocol; Complete Time: 09:40 03/09 09:05 Order name: O2 Sat Monitoring; Complete Time: 09:40 03/09 09:06 Order name: IV Saline Lock - Large Bore; Complete Time: 09:55 03/09 11:18 Order name: Labs - recollect needed: recollect type and screen, re band pt and tube; bd Complete Time: 11:46 EC:55 Rate is 92 beats/min. Rhythm is regular. QRS [place] is Normal. HI interval is normal. QRS krsitie interval is normal. QT interval is normal. No Q waves. T waves are Normal. No ST changes noted. Clinical impression: Normal ECG and No evidence of ischemia. Interpreted by me. Reviewed by me. Administered Medications: 09:48 Drug: Ondansetron IVP 4 mg IVP once; over 2 minutes Route: IVP; Site: right forearm; aa5 10:00 Follow up: Response: No adverse reaction aa5 09:50 Drug: NS 0.9% IV 1000 ml IV at 1 bolus Per protocol; 1000 mL bolus Route: IV; Rate: 1 aa5 bolus; Site: right forearm; 10:50 Follow up: IV Status: Completed infusion; IV Intake: 1000ml aa5 09:50 Drug: Pantoprazole IVP 80 mg IVP once Route: IVP; Site: right forearm; aa5 10:00 Follow up: Response: No adverse reaction aa5 09:50 Drug: Banana Bag - (Multivitamin IV 1 amp, NS 0.9% IV 1000 ml, Thiamine IV 100 mg, aa5 foLIC Acid IVPB 1 mg) IV at 500 ml/hr once Route: IV; Rate: 500 ml/hr; Site: right forearm; 11:50 Follow up: IV Status: Completed infusion aa5 10:30 Drug: Pantoprazole IV 8 mg/hr IV at 25 ml/hr continuous; (Standard dilution is 80 mg in rs5 250 mL NS) Route: IV; Rate: 25 ml/hr; Site: left antecubital; 13:15 Follow up: IV Status: Infusion continued upon transfer aa5 Disposition Summary: 03/09/23 09:26 Transfer Ordered Notes: Transfer Location: [facility] kristie Reason: Higher level of care kristie Condition: Fair kristie Problem: new kristie Symptoms: have worsened kristie Accepting Physician: to [facility](03/09/23 13:18) aa5 Diagnosis - Epigastric pain - gastroc bypass august 2022 kristie - GI Bleed/ Gastrointestinal hemorrhage, unspecified - upper kristie - Syncope Near kristie - Acute posthemorrhagic anemia kristie - Weakness kristie Forms: - Medication Reconciliation Form kristie - SBAR form kristie NIH Stroke Scale - NIH Stroke Score Date: 03/09/2023 Time: 09:15 Total Score = 0 10. Dysarthria (speech clarity - read or repeat words) - 0(Normal) 11. Extinction and Inattention (visual/tactile/auditory/spatial/personal) - 0(No abnormality) 1a. Level of Consciousness (LOC) - 0(Alert) 1b. Level of Consciousness (LOC) (Month \T\ Age) - 0(Both) 1c. LOC Commands (Open \T\ Closes Eyes/Community Relations Advisor) - 0(Both) 2. Best Gaze (Lateral Gaze Paresis) - 0(Normal) 3. Visual Field Loss - 0(No visual loss) 4. Facial Palsy - 0(Normal) 5a. Left Arm: Motor (10-second hold) - 0(No drift) 5b. Right Arm: Motor (10-second hold) - 0(No drift) 6a. Left Leg: Motor (5-second hold - always test supine) - 0(No drift) 6b. Right Leg: Motor (5-second hold - always test supine) - 0(No drift) 7. Limb Ataxia (finger/nose \T\ heel/moran - test with eyes open) - 0(Absent) 8. Sensory Loss (pinprick arms/legs/face) - 0(Normal) 9. Best Language: Aphasia (description/naming/reading) - 0(No aphasia) Initials: kristie Signatures: Dispatcher [employer] EDMS Amy Crow Corey, MD MD cha Williams, Irene, RN RN iw Beatriz Castro RN RN aa5 Royce Pickering RN RN rs5 Corrections: (The following items were deleted from the chart) 09: 09:12 Abdomen Pelvis W Con+CT.RAD.BRZ ordered. EDMS EDMS 13:18 09:26 to [facility] kristie de paz5
[2023-03-09] MEDS ORDERED: MULTIVITAMINS 10 ML VIAL (INJ) IV ONE (09:52)
[2023-03-09] MEDS ORDERED: PANTOPRAZOLE 40 MG INJ ONE (09:53)
[2023-03-09] MEDS ORDERED: NA CHLORIDE 0.9% 2,000 ML ONE (09:53)
[2023-03-09] MEDS ORDERED: ONDANSETRON 4 MG/2 ML VIAL ONE (09:53)
[2023-03-09 09:58] LABS: Absolute Lymphocytes (CBC) 1.7 K/uL (0.7-4.9); Hematocrit 33.4 % (39.6-49.0); Lymphocytes % 20.6 % (15.3-44.8); MPV 9.8 fL (7.6-11.3); Platelets 244 thou/uL (152-406); RBC Red Blood Cell Count 3.63 M/uL (4.33-5.43)
[2023-03-09] MEDS ORDERED: PANTOPRAZOLE INJ 80 MG in NA CHLORIDE 0.9% 250 ML IV SCH (10:00)
[2023-03-09 10:01] LABS: Protime INR 1.13
--- NOTE | 2023-03-09 10:10 | RAD REPORT ---
EXAM DESCRIPTION: Katerine Single View03/09/2023 9:48 am CLINICAL HISTORY: Cough COMPARISON: March 08, 2023 FINDINGS: The lungs appear clear of acute infiltrate. The heart is normal size IMPRESSION: No acute abnormalities displayed
[2023-03-09 10:33] LABS: Albumin 3.2 g/dL (3.4-5.0); Bilirubin Direct 0.2 mg/dL (0-0.2); Bilirubin Indirect, Calculated 0.4 mg/dL (0.2-0.8); Bilirubin Total 0.6 mg/dL (0.2-1.0); Magnesium 1.7 mg/dL (1.6-2.4); Protein, Total 6.5 g/dL (6.4-8.2)
--- NOTE | 2023-03-10 11:59 | EKG ---
Test Date: 2023-03-09 Test Time: 09:50:57 Evidence Technician: DESMOND MEASUREMENT RESULTS: Intervals: Rate: 92 MD: 134 QRSD: 74 QT: 348 QTc: 430 [place]: P: 67 MD: 134 QRS: 30 T: 34 INTERPRETIVE STATEMENTS: Normal sinus rhythm Normal ECG Compared to ECG 03/08/2023 07:24:16 Sinus tachycardia no longer present Electronically Signed On 03-10-23 11:56:05 CDT by Satish Moya
== END 2023-03-09 13:18 | disposition short-term general hospital (02) ==
LOC: ER 08:58
DX: R10.13 Epigastric pain (principal); K92.2 Gastrointestinal hemorrhage, unspecified; D62 Acute posthemorrhagic anemia; R55 Syncope and collapse; R53.1 Weakness; Z98.84 Bariatric surgery status; F10.20 Alcohol dependence, uncomplicated
CPT/HCPCS: 36415; 71045; 80048; 80076; 83690; 83735; 83880; 84484; 85025; 85610; 86850; 86900; 86901; 93005; C9113; J2405; J7030; J7050

== ENCOUNTER 2024-08-25 09:35 | Emergency (ER) | payer SELFPAY ==
[2024-08-25] MEDS ORDERED: KETOROLAC 30 MG/ML INJ ONE (10:02)
[2024-08-25] MEDS ORDERED: ONDANSETRON 4 MG/2 ML VIAL ONE (10:02)
[2024-08-25] MEDS ORDERED: NA CHLORIDE 0.9% 1,000 ML ONE (10:02)
[2024-08-25 10:10] LABS: Specific Gravity < 1.005 (1.005-1.030); Urine Bilirubin NEGATIVE (Negative); Urine Blood Negative (Negative); Urine Clarity Clear (Clear); Urine Color Colorless (Yellow); Urine Glucose NEGATIVE (Negative); Urine Ketones NEGATIVE (Negative); Urine Microscopic Reflex YN NO UMIC; Urine Nitrite NEGATIVE (Negative); Urine Protein NEGATIVE (Negative); Urine Urobilinogen Normal (Normal); Urine pH 6.5 (5.0-7.0)
--- NOTE | 2024-08-25 10:24 | RAD REPORT ---
EXAMINATION: CT Stone Protocol CLINICAL INDICATION: Male, 38 years old. FLANK PAIN TECHNIQUE: CT abdomen and pelvis was performed, without IV contrast, as per department protocol. Axia l, sagittal and coronal reconstructions were obtained. One or more of the following dose reduction techniques were used: Automated exposure control, adjustment of the mA and kV according to the patien t size, and iterative reconstruction. Unless otherwise specified, incidental findings do not require dedicated imaging follow-up. COMPARISON: No prior exam. FINDINGS: The lack of intravenous contrast limits the sensitivity of this exam for evaluation of solid visceral organs, vascular structures, and retroperitoneum. LOWER CHEST: The visualized lung bases are clear apart from stable subpleural right lower lobe 1 cm g ranuloma. LIVER: Normal in size and contour. No focal lesion. BILIARY SYSTEM: No suspicious abnormalities. SPLEEN: Normal size. No focal lesion. PANCREAS: No mass, ductal dilation, or laury-pancreatic fluid. ADRENALS: Normal; no mass. KIDNEYS AND URETERS: Normal size and contour. No hydronephrosis. Left lower pole 7 mm nonobstructing calculus. URINARY BLADDER: Normal contour. GASTROINTESTINAL TRACT: Sequelae of gastric bypass. No evidence of bowel obstruction, significant maciej e fluid, free air or abscess. APPENDIX: Normal appendix. LYMPH NODES: No lymphadenopathy. MUSCULOSKELETAL: No acute or suspicious osseous abnormality. Transitional anatomy at L5 with enlargem ent of the right transverse process. ADDITIONAL FINDINGS: None. IMPRESSION: Nonobstructing left lower pole 7 mm calculus. No other acute or concerning abnormalities in the abdomen or pelvis, with evaluation limited by lack of IV contrast.
[2024-08-25 10:25] LABS: Absolute Basophils 0.1 K/uL (0-0.5); Absolute Eosinophils 0.1 K/uL (0-0.5); Absolute Lymphocytes (CBC) 1.7 K/uL (0.7-4.9); Absolute Monocytes 0.5 K/uL (0.1-1.3); Basophils % 1.2 % (0-1.3); Eosinophils % 1.8 % (0-4.4); Hematocrit 35.1 % (39.6-49.0); Hemoglobin 11.1 g/dL (13.6-17.9); Lymphocytes % 26.8 % (15.3-44.8); MCH 22.6 pg (27.0-35.0); MCHC 31.7 g/dL (32.0-36.0); MCV 71.4 fL (80-100); MPV 8.6 fL (7.6-11.3); Monocytes % 7.1 % (3.3-12.3); Neutrophils % 63.1 % (41.7-73.7); Nucleated Red Blood Cells % 0.1 % (0-0); Platelets 266 thou/uL (152-406); RBC Red Blood Cell Count 4.92 M/uL (4.33-5.43); Red Cell Distribution Width 17.7 % (12.1-15.2)
[2024-08-25 10:43] LABS: Albumin/Globulin Ratio 1.1 (1.1-1.8); Anion Gap 8.4 mEq/L (5.0-15.0); Bilirubin Total 0.5 mg/dL (0.2-1.0); Globulin 3.6 g/dL (2.3-3.5); Potassium 3.4 mEq/L (3.5-5.1); Protein, Total 7.6 g/dL (6.4-8.2)
--- NOTE | 2024-08-25 12:37 | EDPHYS ---
Physician Documentation [facility] Name: Cheko Moran Age: 38 yrs Sex: Male : 1985 Arrival Date: 08/25/2024 Time: 09:35 Bed 12 Private MD: ED Physician Jorge Ness HPI: 08/25 12:31 This 38 yrs old Male presents to ER via Ambulatory with complaints of Nausea, kristie Vomiting, Back Pain - mid. 12:31 The patient presents with pain that is acute, with no known mechanism of injury. The kristie symptoms are located in the low back, lumbar spine. The pain does not radiate. The problem was sustained from unknown cause. Onset: The symptoms/episode began/occurred 3 day(s) ago. Modifying factors: The patient symptoms are alleviated by nothing, the patient symptoms are aggravated by nothing. Associated signs and symptoms: Pertinent positives: nausea. The patient presents to the emergency department with nausea, that is moderate, vomiting, that is intermittent. Possible causes: unknown. Historical: - Allergies: 09:43 PENICILLINS; aa5 - PMHx: 09:43 Alcohol dependence; Hypertension; aa5 - PSHx: 09:43 Gastric Bypass; aa5 09:43 hernia as a child (Unknown); aa5 - Immunization history:: Adult Immunizations unknown. - Infectious Disease History:: Denies. - Social history:: Smoking status: Reported history of juuling and/or vaping. - Family history:: not pertinent. ROS: 12:32 Constitutional: Negative for fever, chills, and weight loss, Eyes: Negative for injury, kristie pain, redness, and discharge, ENT: Negative for injury, pain, and discharge, Neck: Negative for injury, pain, and swelling, Cardiovascular: Negative for chest pain, palpitations, and edema, Respiratory: Negative for shortness of breath, cough, wheezing, and pleuritic chest pain, : Negative for injury, bleeding, discharge, and swelling, MS/Extremity: Negative for injury and deformity, Skin: Negative for injury, rash, and discoloration, Neuro: Negative for headache, weakness, numbness, tingling, and seizure, 12:32 Abdomen/GI: Positive for abdominal pain, nausea and vomiting, 12:32 Back: Positive for pain at rest, Exam: 12:32 Constitutional: This is a well developed, well nourished patient who is awake, alert, kristie and in no acute distress. Head/Face: Normocephalic, atraumatic. Eyes: Pupils equal round and reactive to light, extra-ocular motions intact. Lids and lashes normal. Conjunctiva and sclera are non-icteric and not injected. Cornea within normal limits. Periorbital areas with no swelling, redness, or edema. ENT: Nares patent. No nasal discharge, no septal abnormalities noted. Tympanic membranes are normal and external auditory canals are clear. Oropharynx with no redness, swelling, or masses, exudates, or evidence of obstruction, uvula midline. Mucous membranes moist. Neck: Trachea midline, no thyromegaly or masses palpated, and no cervical lymphadenopathy. Supple, full range of motion without nuchal rigidity, or vertebral point tenderness. No Meningismus. Chest/axilla: Normal chest wall appearance and motion. Nontender with no deformity. No lesions are appreciated. Cardiovascular: Regular rate and rhythm with a normal S1 and S2. No gallops, murmurs, or rubs. Normal PMI, no JVD. No pulse deficits. Respiratory: Lungs have equal breath sounds bilaterally, clear to auscultation and percussion. No rales, rhonchi or wheezes noted. No increased work of breathing, no retractions or nasal flaring. Abdomen/GI: Soft, non-tender, with normal bowel sounds. No distension or tympany. No guarding or rebound. No evidence of tenderness throughout. Back: No spinal tenderness. No costovertebral tenderness. Full range of motion. Male : Normal genitalia with no discharge or lesions. Skin: Warm, dry with normal turgor. Normal color with no rashes, no lesions, and no evidence of cellulitis. MS/ Extremity: Pulses equal, no cyanosis. Neurovascular intact. Full, normal range of motion., bilateral aka Neuro: Awake and alert, GCS 15, oriented to person, place, time, and situation. Cranial nerves II-XII grossly intact. Motor strength 5/5 in all extremities. Sensory grossly intact. Cerebellar exam normal. Normal gait. Psych: Awake, alert, with orientation to person, place and time. Behavior, mood, and affect are within normal limits. Vital Signs: 09:42 BP 177 / 119; Pulse 69; Resp 18 S; Temp 97.7(O); Pulse Ox 100% on R/A; Weight 77.11 kg aa5 (R); Height 5 ft. 9 in. (R); 10:25 BP 164 / 110; Pulse 62; Resp 16 S; Pulse Ox 100% on R/A; aa5 12:15 BP 152 / 101; Pulse 57; Resp 20; Pulse Ox 100% on R/A; kj2 13:09 BP 148 / 90; Pulse 98; Resp 20; Temp 98.2; Pulse Ox 100% on R/A; kj2 09:42 Body Mass Index 25.10 (77.11 kg, 175.26 cm) aa5 MDM: 09:37 Medical Screening Exam initiated kristie 12:34 Differential diagnosis: arthritis, strain, fracture, sciatica, contusion, Herniated kristie disc UTI, Nonspecific abd pain, gastritis, cholecystitis, pancreatitis, appendicitis, diverticulitis, viral gastroenteritis, gastroenteritis. Data reviewed: vital signs, nurses notes, lab test result(s), radiologic studies, CT scan. Consideration of Admission/Observation Escalation of care including admission/observation considered. I considered the following discharge prescriptions or medication management in the emergency department Medications were administered in the Emergency Department. See MAR. Independent interpretation of the following test(s) in the Emergency Department CT Scan: My interpretation is CT STONE. Test considered but Not performed: Ultrasound NO ABD USG. Historians other than the Patient: Spouse/Significant Other: WELL INFORMED. Care significantly affected by the following chronic conditions: Hypertension, Obesity, GASTRIC BYPASS. Counseling: I had a detailed discussion with the patient and/or guardian regarding the historical points, exam findings, and any diagnostic results supporting the discharge/admit diagnosis, the presence of at least one elevated blood pressure reading (>120/80) during this emergency department visit, lab results, radiology results, the need for outpatient follow up, for definitive care, a family practitioner, a press set up person. 08/25 09:39 Order name: CBC with Diff; Complete Time: 12:13 [facility] 08/25 09:39 Order name: Comprehensive Metabolic Panel; Complete Time: 12:13 [facility] 08/25 09:39 Order name: Urinalysis w/ reflexes; Complete Time: 12:13 [facility] 08/25 10:02 Order name: Lipase; Complete Time: 12:13 [facility] 08/25 09:39 Order name: CT Stone Protocol; Complete Time: 12:13 kristie Administered Medications: 09:58 CANCELLED (Physician Discretion): [id number] mg IM once aa5 10:25 Drug: NS 0.9% IV 1000 ml IV at 1 bolus Per protocol; to be given as a bolus over 60 aa5 minutes Route: IV; Rate: 1 bolus; Site: right forearm; 12:21 Follow up: IV Status: Completed infusion; IV Intake: 1000ml kj2 13:09 Follow up: IV Status: Completed infusion; IV Intake: 1000ml kj2 10:25 Drug: Ondansetron IVP 8 mg IVP once; over 2 minutes Route: IVP; Site: right forearm; aa5 13:08 Follow up: Response: No adverse reaction kj2 10:25 Drug: Ketorolac IVP 30 mg IVP once Route: IVP; Site: right forearm; aa5 13:08 Follow up: Response: No adverse reaction kj2 13:22 Drug: Potassium PO Effervescent Tablet 25 mEq PO once; dissolve in 4 ounces of water or kj2 juice Route: PO; 13:22 Follow up: Response: Medication administered at discharge. kj2 13:55 Drug: Norvasc PO 10 mg PO once Route: PO; kj2 13:56 Follow up: Response: No adverse reaction; Medication administered at discharge. kj2 Disposition Summary: 08/25/24 12:37 Discharge Ordered Notes: Location: Home kristie Problem: new kristie Symptoms: have improved kristie Condition: Stable kristie Diagnosis - Nausea with vomiting, unspecified kristie - Low back pain kristie - Hypokalemia kristie - Essential (primary) hypertension kristie Followup: kristie - With: Private Physician - When: 2 - 3 days - Reason: Recheck today's complaints, Continuance of care, Re-evaluation by your physician Followup: kristie - With: Adarsh Rutledge MD - When: 2 - 3 days - Reason: Recheck today's complaints, Re-evaluation by your physician Followup: kristie - With: Satish Moya MD - When: 2 - 3 days - Reason: Recheck today's complaints, Re-evaluation by your physician Followup: kristie - With: Florentin Gonzalez DO - When: 2 - 3 days - Reason: Recheck today's complaints, Re-evaluation by your physician Discharge Instructions: - Discharge Summary Sheet kristie - Acute Back Pain, Adult kristie - Chronic Back Pain kristie - Potassium Content of Foods kristie - Hypertension, Adult kristie - Musculoskeletal Pain kristie - Nausea and Vomiting, Adult kristie - Hypertension, Adult, [id number] kristie - How to Take Your Blood Pressure, [id number] kristie - Managing Your Hypertension [facility] Forms: - Medication Reconciliation Form kristie - Antibiotic Education kristie - Prescription Opioid Use kristie - Patient Portal Instructions [facility] - Leadership Thank You Letter [facility] Prescriptions: - ondansetron 4 mg Oral Tablet,disintegrating - take 1 tablet ORAL route 3 times per day for 5 days PRN; 20 tablet; Refills: 0, kristie Product Selection Permitted - Norvasc 5 mg Oral Tablet - take 1 tablet ORAL route once daily; 20 tablet; Refills: 0, Product Selection [facility] Permitted - Potassium Chloride 20 meq Oral Packet - take 1 packet ORAL route once daily 1 packet in 6 (six) ounces of water or [facility] juice; Take after meal; 14 packet; Refills: 0, Product Selection Permitted Signatures: Dispatcher [employer] Jorge Junior MD MD cha Calderon, Audri RN RN aa5 Kimberley Kramer, RN RN kj2 Corrections: (The following items were deleted from the chart) 09:39 09:39 Stone Protocol+CT.RAD.BRZ ordered. EDSD EDMS 09:43 09:43 PSHx: hernia as a child (Gastric Bypass); aa5 aa5 09:58 09:39 Ketorolac IM 30 mg IM once ordered. [facility] aa5
--- NOTE | 2024-08-25 12:37 | ER ---
Nurse's Notes [facility] Name: Cheko Moran Age: 38 yrs Sex: Male : 1985 Arrival Date: 08/25/2024 Time: 09:35 Bed 12 Private MD: Diagnosis: Nausea with vomiting, unspecified;Low back pain;Hypokalemia;Essential (primary) hypertension Presentation: 08/25 09:42 Chief complaint: Patient states: mid back pain that began "months ago" and it's aa5 intermittent, pt reports nausea/vomiting today. Coronavirus screen: nausea, vomiting. Ebola Screen: Patient denies travel to an Ebola-affected area in the 21 days before illness onset. Initial Sepsis Screen: Does the patient meet any 2 criteria? No. Patient's initial sepsis screen is negative. Does the patient have a suspected source of infection? No. Patient's initial sepsis screen is negative. Risk Assessment: Do you want to hurt yourself or someone else? Patient reports no desire to harm self or others. Onset of symptoms was August 25, 2024. 09:42 Method Of Arrival: Ambulatory aa5 09:42 Acuity: YUVAL 3 aa5 Historical: - Allergies: 09:43 PENICILLINS; aa5 - PMHx: 09:43 Alcohol dependence; Hypertension; aa5 - PSHx: 09:43 Gastric Bypass; aa5 09:43 hernia as a child (Unknown); aa5 - Immunization history:: Adult Immunizations unknown. - Infectious Disease History:: Denies. - Social history:: Smoking status: Reported history of juuling and/or vaping. - Family history:: not pertinent. Screenin:42 [facility] ED Fall Risk Assessment (Adult) History of falling in the last 3 months, aa5 including since admission No falls in past 3 months (0 pts) Confusion or Disorientation No (0 pts) Intoxicated or Sedated No (0 pts) Impaired Gait No (0 pts) Mobility Assist Device Used No (0 pt) Altered Elimination No (0 pt) Score/Fall Risk Level 0 - 2 = Low Risk Oriented to surroundings, Maintained a safe environment, Educated pt \\T\\ family on fall prevention, incl call for assistance when getting out of bed, Assessed \\T\\ reinforced patient's understanding of fall precautions. Abuse screen: Denies threats or abuse. Nutritional screening: No deficits noted. Tuberculosis screening: No symptoms or risk factors identified. Assessment: 09:45 General: Appears uncomfortable, Behavior is calm, cooperative. Pain: Complains of pain aa5 in left mid back and right mid back Pain radiates to around to abdomen Pain currently is 8 out of 10 on a pain scale. Quality of pain is described as sharp, Pain began "months ago". Neuro: Level of Consciousness is awake, alert, obeys commands, Oriented to person, place, time, situation. Cardiovascular: Patient's skin is warm and dry. Respiratory: Airway is patent Respiratory effort is even, unlabored, Respiratory pattern is regular, symmetrical. GI: Abdomen is non-distended, Bowel sounds present X 4 quads. Abd is soft and non tender X 4 quads. Reports nausea, vomiting, since this morning. : No signs and/or symptoms were reported regarding the genitourinary system. EENT: No signs and/or symptoms were reported regarding the EENT system. Derm: Skin is pink, warm \\T\\ dry. Musculoskeletal: Range of motion: intact in all extremities. 12:10 Reassessment: Patient appears in no apparent distress at this time. Patient and/or kj2 family updated on plan of care and expected duration. Pain level reassessed. Patient is alert, oriented x 3, equal unlabored respirations, skin warm/dry/pink. 13:09 Reassessment: Patient appears in no apparent distress at this time. Patient and/or kj2 family updated on plan of care and expected duration. Pain level reassessed. Patient is alert, oriented x 3, equal unlabored respirations, skin warm/dry/pink. 13:10 Reassessment: request to meet with MD before leaving, MD notified. kj2 Vital Signs: 09:42 BP 177 / 119; Pulse 69; Resp 18 S; Temp 97.7(O); Pulse Ox 100% on R/A; Weight 77.11 kg aa5 (R); Height 5 ft. 9 in. (R); 10:25 BP 164 / 110; Pulse 62; Resp 16 S; Pulse Ox 100% on R/A; aa5 12:15 BP 152 / 101; Pulse 57; Resp 20; Pulse Ox 100% on R/A; kj2 13:09 BP 148 / 90; Pulse 98; Resp 20; Temp 98.2; Pulse Ox 100% on R/A; kj2 09:42 Body Mass Index 25.10 (77.11 kg, 175.26 cm) aa5 ED Course: 09:36 Patient arrived in ED. im 09:37 Jorge Ness MD is Attending Physician. kristie 09:41 Arm band placed on. aa5 09:41 Patient has correct armband on for positive identification. Bed in low position. Call aa5 light in reach. Side rails up X 1. Adult w/ patient. Pulse ox on. NIBP on. 09:43 Triage completed. aa5 09:56 Beatriz Castro, JI is Primary Nurse. aa5 10:02 CT Stone Protocol In Process Unspecified. EDMS 10:22 Comprehensive Metabolic Panel Sent. em1 10:22 CBC with Diff Sent. em1 10:22 Lipase Sent. em1 10:22 Initial lab(s) drawn, by il, sent to lab. Inserted saline lock: 20 gauge in right em1 forearm, using aseptic technique. Blood collected. Flushed with 10 mL NS. 12:00 Report given to JI Chu. aa5 12:15 Provided Education on: call light. kj2 12:36 Adarsh Rutledge MD is Referral Physician. kristie 13:10 No provider procedures requiring assistance completed. IV discontinued, intact, kj2 bleeding controlled, No redness/swelling at site. Pressure dressing applied. 13:50 Satish Moya MD is Referral Physician. [facility] 13:51 Florentin Gonzalez DO is Referral Physician. kristie Administered Medications: 09:58 CANCELLED (Physician Discretion): [id number] mg IM once aa5 10:25 Drug: NS 0.9% IV 1000 ml IV at 1 bolus Per protocol; to be given as a bolus over 60 aa5 minutes Route: IV; Rate: 1 bolus; Site: right forearm; 12:21 Follow up: IV Status: Completed infusion; IV Intake: 1000ml kj2 13:09 Follow up: IV Status: Completed infusion; IV Intake: 1000ml kj2 10:25 Drug: Ondansetron IVP 8 mg IVP once; over 2 minutes Route: IVP; Site: right forearm; aa5 13:08 Follow up: Response: No adverse reaction kj2 10:25 Drug: Ketorolac IVP 30 mg IVP once Route: IVP; Site: right forearm; aa5 13:08 Follow up: Response: No adverse reaction kj2 13:22 Drug: Potassium PO Effervescent Tablet 25 mEq PO once; dissolve in 4 ounces of water or kj2 juice Route: PO; 13:22 Follow up: Response: Medication administered at discharge. kj2 13:55 Drug: Norvasc PO 10 mg PO once Route: PO; kj2 13:56 Follow up: Response: No adverse reaction; Medication administered at discharge. kj2 Medication: 11:07 VIS not applicable for this client. aa5 Intake: 12:21 IV: 1000ml; Total: 1000ml. kj2 13:09 IV: 1000ml; Total: 2000ml. kj2 Outcome: 12:37 Discharge ordered by . kristie 13:10 Discharged to home ambulatory, kj2 13:10 Condition: stable 13:10 Discharge instructions given to patient, Instructed on discharge instructions, Demonstrated understanding of instructions, follow-up care, medications, 13:56 Patient left the ED. kj2 Signatures: Dispatcher [employer] EDMS Jorge Ness MD MD cha Martinez, Eric em1 Beatriz Castro, RN RN aa5 Sunita Goddard Krystal, RN RN kj2 Corrections: (The following items were deleted from the chart) 09:43 09:43 PSHx: hernia as a child (Gastric Bypass); aa5 aa5 10:32 10:20 Ketorolac IVP 30 mg IVP in right forearm aa5 aa5 10:33 10:20 Ondansetron IVP 8 mg IVP in right forearm aa5 aa5 10:33 10:20 NS 0.9% IV 1000 ml IV at 1 bolus in right forearm aa5 aa5
[2024-08-25] MEDS ORDERED: POTASSIUM 25 MEQ EFFERV TAB ONE (13:13)
[2024-08-25] MEDS ORDERED: AMLODIPINE 10 MG TAB ONE (13:53)
[2024-08-25 14:29] VITALS: O2SAT 100
[2024-08-25 14:46] VITALS: BP 148/90; TEMP 98.2
== END 2024-08-25 13:56 | disposition home or self-care (01) ==
LOC: ER 09:35
DX: E87.6 Hypokalemia (principal); M54.50 Low back pain, unspecified; I10 Essential (primary) hypertension; F10.20 Alcohol dependence, uncomplicated; Z98.84 Bariatric surgery status
CPT/HCPCS: 36415; 74176; 76377; 80053; 81003; 83690; 85025; 96361; 96374; 96375; 99284; J2405; J7030